=== PATIENT | male | born 1950 | race Caucasian/White ===

== ENCOUNTER → 2018-12-01 18:02 | Outpatient (REF) | payer MEDICARE, SELFPAY ==
[2018-12-01 19:00] LABS: Alanine Aminotransferase 25 IU/L (21-72); Albumin Globulin Ratio 1.3 (1.0-2.8); Alkaline Phosphatase 75 U/L (38-126); Aspartate Aminotransferase 27 IU/L (17-59); BUN Creatinine Ratio 18.8 (6-22); Bilirubin Total 0.6 mg/dL (0.2-1.3); Blood Urea Nitrogen 15 mg/dL (9-20); Calcium 8.9 mg/dL (8.4-10.2); Carbon Dioxide 26 mmol/L (22-32); Chloride 103 mmol/L (98-107); Cholesterol 184 mg/dL (140-199); Estimated Glomerular Filt Rate > 60.0 mL/min (>60); Glucose 94 mg/dL (80-110); HDL Cholesterol 34 mg/dL (40-60); HEMOLYSIS < 15 (0-50); LDL Cholesterol Calculated 119 mg/dL (<100); Potassium 4.4 mmol/L (3.4-5.1); Sodium 139 mmol/L (137-145); Triglycerides 156 mg/dL (35-150)
[2018-12-01 19:28] LABS: Prostate Specific Antigen 1.13 ng/mL (0.10-4.00)
== END ==
LOC: LAB 18:02
PROVIDERS: Family Provider Nutritionist; PCP Nutritionist; Visit Provider Physician Assistant
DX: C44.319 Basal cell carcinoma of skin of other parts of face (principal); Z12.5 Encounter for screening for malignant neoplasm of prostate; Z13.220 Encounter for screening for lipoid disorders
CPT/HCPCS: 36415; 80053; 80061; 84153; 88305

== ENCOUNTER → 2020-04-28 10:54 | Outpatient (CLI) | payer OTHER, SELFPAY ==
[2020-04-28 12:26] LABS: Add Manual Diff / Slide Review NO; Basophils Absolute Auto 0 /uL (0-100); Basophils Percent Auto 0.5 % (0-2); Eosinophils Absolute Auto 200 /uL (0-450); Eosinophils Percent Auto 2.6 % (2-4); Hematocrit 35.9 % (41-53); Hemoglobin 12.3 g/dL (13.5-17.5); Lymphocytes Absolute Auto 1200 /uL (1100-4500); Lymphocytes Percent Auto 16.9 % (25-40); Mean Corpuscular HGB Conc 34.3 % (30-36); Mean Corpuscular Hemoglobin 29.4 PG (26-34); Mean Corpuscular Volume 85.9 fL (80-100); Monocytes Absolute Auto 500 /uL (0-900); Monocytes Percent Auto 7.5 % (3-14); Neutrophils Absolute Auto 5000 /uL (1500-7000); Neutrophils Percent Auto 72.5 % (50-75); Platelet Count 166 X10^3/uL (150-400); Red Blood Cell Count 4.17 X10^6/uL (4.5-5.9); Red Cell Distribution Width 13.8 % (11.6-14.8); White Blood Cell Count 6.9 X10^3/uL (4.5-11.0)
== END ==
PROVIDERS: Family Provider Nutritionist; PCP Nutritionist; Referring Provider Orthopaedic Surgery; Visit Provider Orthopaedic Surgery
DX: Z01.812 Encounter for preprocedural laboratory examination (principal); Z01.818 Encounter for other preprocedural examination
CPT/HCPCS: 36415; 85025; 93005

== ENCOUNTER → 2020-05-25 10:35 | Outpatient (CLI) | payer OTHER, SELFPAY ==
[2020-05-27 12:09] LABS: COVID19 Sendout Not Detected (Not Detect)
== END ==
PROVIDERS: Family Provider Nutritionist; PCP Nutritionist; Visit Provider Physician Assistant
DX: Z11.59 Encounter for screening for other viral diseases (principal)
CPT/HCPCS: 87635

== ENCOUNTER 2020-05-28 07:53 | Day surgery (SDC) | payer OTHER, SELFPAY ==
[2020-05-21 08:38] VITALS: BMI 34.7
[2020-05-28] VITALS (14 sets, daily range): BP systolic 109–145; BP diastolic 53–72; PULSE 50–67; RESP 12–18; TEMP 35.9–36.7; O2SAT 95–100; BMI 33.3
--- NOTE | 2020-05-28 08:34 | DI.RAD.S_ITS ---
PROCEDURE: XR PELVIS 1-2V INDICATIONS: post op films TECHNIQUE: 1 view of the lower pelvis acquired. COMPARISON: None. FINDINGS: Bones: Patient is status post right total hip arthroplasty, with hardware components in expected positions. The hip joint appears congruent. The visualized bony structures appear intact. Soft tissues: Overlying postoperative changes are noted. No suspicious soft tissue densities. IMPRESSION: Post right total hip arthroplasty changes with anatomic right hip alignment. Dictated by: Bry Grigsby M.D. on 05/28/2020 at 12:53 Approved by: Bry Grigsby M.D. on 05/28/2020 at 12:54
[2020-05-28] MEDS: ACETAMINOPHEN 325 MG TABLET 975 MG PO (08:44)
[2020-05-28] MEDS: LACTATED RINGERS 1,000 ML 42 ML IV (08:44)
[2020-05-28] MEDS: CELECOXIB 200 MG CAPSULE PO (08:47)
--- NOTE | 2020-05-28 09:25 | PM.PREOP ---
Pre-operative Note COVID-19 COVID-19 status: Negative Result date/Date tested (Pos, Neg/Pending): 05/26/20 Interval Note History & Physical reviewed/Exam performed by Physician: Yes Changes to H&P: No
--- NOTE | 2020-05-28 09:32 | SUR.PREOP ---
Zara Hayes per anesthesiologist, due to pt taking Gabapentin this morning
[2020-05-28] MEDS: CEFAZOLIN 2 GM/100 ML FROZ.PIGGY IV ×2 (10:03→18:46)
[2020-05-28] MEDS: TRANEXAMIC ACID 1,000 MG VIAL 1000 MG INJ ×2 (10:20→11:29)
--- NOTE | 2020-05-28 10:36 | SUR.OPER ---
Lateral on padded OR bed. Gel axillary roll. Arms secured on padded armboard with pillow supporting top arm. Padded hip positioner braces x4 - anterior and posterior chest and pelvis. Additional gel pad used anterior pelvis. Gel pad under bottom leg from knee to foot and secured with tape over sheet.
[2020-05-28] MEDS: ROPIVACAINE 0.5% PF 5 MG/ML 20ML VIAL 60 ML INJ (10:41)
[2020-05-28] MEDS: KETOROLAC 30 MG/ML VIAL IV (10:41)
[2020-05-28] MEDS: MORPHINE 4 MG/ML INJ INJ (10:41)
--- NOTE | 2020-05-28 11:52 | P.OP_ITS ---
Operative Date/Time/Diagnoses Date of procedure: 05/28/20 Time of procedure: 11:52 Pre-op diagnosis: Right hip degenerative joint disease Post-op diagnosis: same Procedure & Clinicians Procedure: Right total hip arthroplasty (CPT code 57194 with events administrative assistant) Same procedure as scheduled: Yes Indications: Patient is an 69-year-old male with severe right hip DJD. The patient has pain with activities and at rest, limited ambulation and activity tolerance, difficulties with ADLs, and failure of conservative treatment. We have discussed the nature of condition, treatment options, risks and benefits, and patient elects to proceed with total hip arthroplasty and gives informed consent. Surgeon: Gilbert Bear [employer] Supervisor: Carlos Oh Anesthesia Type: General and Spinal Operative Notes Closure Type: primary Specimen(s): none sent Prosthetic devices, grafts, tissues, transplants, or devices: Acetabulum: Gordon and Nephew R3 acetabular component size 60 mm Femoral component: Gordon [employer]hew Anthology stem size 12 with standard offset Femoral head: 36 mm + 0 Oxinium Estimated Blood Loss (mL): 200 Procedure in detail: After satisfaction induction of anesthetic, and administration of IV antibiotics, the patient was positioned in the lateral decubitus position with all bony prominences well padded and pelvic position secured using a hip data entry operator positioning device. Right hip and lower extremity prepped and draped in the usual sterile fashion, 1st dose of intravenous tra nexamic acid was administered, then a longitudinal incision was created centered over the greater trochanter and carried sharply through the skin and subcutaneous tissues down to the fascia kendell which was divided longitudinally and retracted with a Charnley retractor. External rotators visualize, cut, tagged, and retracted posteriorly, then the capsule was cut in a T-type fashion with the corners tagged and retracted. Hip was dislocated and femoral neck cut made according to preoperative templating. Acetabular retractors then placed, and the acetabular labrum and osteophytes were excised. The acetabulum was then sequentially reamed to 59 mm with an excellent circumferential ream and fit with the trial. The trial component was removed and a permanent size 60 mm Gordon and Nephew R3 acetabular component was selected, positioned, and impacted with satisfactory position and fixation achieved. Permanent liner was then inserted with the elevated lip directed posteriorly. Soft tissue then removed off the lateral femoral neck in the lateral neck was entered using a box osteotome. T- handled reamers placed down the canal followed by sequential broaching to 12 with the final broach left in place for trial reduction which demonstrated excellent leg length, range of motion, and stability characteristics with a 36 mm +0 trial ball. The trial and broach were removed, and a permanent size 12 Gordon and Nephew Anthology stem was selected and inserted with excellent position and fixation achieved. Another trial reduction yielded the above characteristics so the trial ball was exchanged for a permanent 36 mm +0 Oxinium ball. The hip was irrigated and reduced and excellent leg length range of motion and stability characteristics were achieved and maintained. Periarticular tissues were infiltrated with ropivacaine, morphine, and Toradol. The hip was copiously irrigated, and the capsule repaired with #2 Ethibond, and the piriformis was repaired back to the greater trochanter with the same. Fascia kendell closed with interrupted #1 Ethibond sutures, and the subcutaneous tissues were closed in 2 layers of 0 Vicryl and 2 0 Vicryl. Skin was closed with giorgio and sterile dressings applied. Second dose of tranexamic acid was administered intravenously, and the anesthetic was terminated. Complications: none Post-operative Condition: stable Disposition: PACU Plan for aftercare: Patient will be admitted to the acute care joshi, and anticipate discharge on postop day 1 with follow-up in office in 10-14 days. Outpatient physical therapy will be arranged and patient will continue to observe posterior hip precautions. Patient will continue use of postoperative aspirin for DVT prophylaxis.
[2020-05-28] MEDS: LACTATED RINGERS 1,000 ML 125 ML IV ×2 (13:07→21:58)
--- NOTE | 2020-05-28 14:21 | PC.NURSE ---
Addendum entered by Agnes Monique R.N. 05/28/20 15:27: Pt c/o left eye irritation and rubbing left eye. States irritation is under his upper eyelid on the left. Eye lid does look irritated, slightly red. Nothing seen upon visual inspection. Flushed with NS without any good relief. Evening RN Dina also aware. Original Note: Day Shift- Report rec'd from NICK Gary in PACU at 1229. Pt arrived to unit room 217 at 1237 via bed. Pt A&OX4. Oriented to call light, bed function. Pt able to properly demonstrate incentive spirometer. Pt's Jorge arrived in pt's room visiting. They are from [facility] and requested to have an early discharge tomorrow to facilitate a timely discharge for Raghav. PT Courtney also aware of this. Pt's BLE numb, slight movement in bed from side to side, no lifting legs off bed. RLE more numb than compared to LLE. Pt on arrival was unable to perform ankle waves. Was able to slightly bend at the knee. IVF started, pt wanted only ice water at this time. Denies pain, nausea, chest pain/pressure or shortness of breath. Call light within reach.
--- NOTE | 2020-05-28 15:30 | PT.IIE ---
Current Diagnoses Unilateral primary osteoarthritis, right hip (05/28/20) Surgery Performed Operation Date: 05/28/20 09:45 Actual Procedures p Total Hip Arthroplasty(Right) - Gilbert Bear MD Surgical History (Last Updated 05/21/20 @ 09:20 by Francine Chase, RN) History of arthroplasty of left knee (Acute) History of arthroplasty of right knee (Acute) History of testicular surgery (Acute) History of vasectomy (Acute) Hx of left inguinal hernia repair (Acute) Hx of right inguinal hernia repair (Acute) Hx of umbilical hernia repair (Acute) Medical History (Last Updated 05/21/20 @ 09:43 by Francine Chase RN) Brain bleed (Acute 2016) Chronic back pain (Acute) Diverticulosis (Acute) Multiple lipomas (Acute ~1975) BENY on CPAP (Acute) Osteoarthritis (Acute) Plantar fasciitis of right foot (Acute) Physical Therapy Inpatient Evaluation/Re-Eval M1 PT/OT-IP Prior Functional Status Start: 05/28/20 16:36 Freq: NEEDED Status: Active Protocol: Document 05/28/20 15:30 AB (Rec: 05/28/20 17:11 [id number]) Medical Review Prior Functional Status Medical History Reviewed Yes Communication able to make needs known Mobility and Gait stated that he is independent with all mobilites and ambulation without AD Social History Household Members spouse Living Arrangements House Number of Floors (Floors) One Floor Number of Stairs To Enter/Railing? 2 steps to enter with R rail ascending Home Environment Standard Height Toilet,Tub/ Shower Home Equipment Front Wheel Walker,Straight Cane,Raised Toilet Seat Without Armrests,Shower Seat without Backrest,Grab Bars In Shower M2 PT-IP Current Condition Start: 05/28/20 16:36 Freq: NEEDED Status: Active Protocol: Document 05/28/20 15:30 AB (Rec: 05/28/20 17:11 AB [id number]) Physical Therapy Current Condition Current Condition Evaluation Date 05/28/20 Treatment Diagnosis s/p R MAIRA posterior approach; difficulty in walking Onset Date 05/28/20 Precautions Posterior Hip Precautions No Hip Flexion > 90 degrees,No Hip Internal Rotation,No Hip Adduction Weight Bearing Status Weight Bearing Status Weight Bear as Tolerated Allowed Weight Bearing Amount (enter % RLE WBAT or #) (%) M3 PT-IP Subjective Start: 05/28/20 16:36 Freq: NEEDED Status: Active Protocol: Document 05/28/20 15:30 AB (Rec: 05/28/20 17:11 AB [id number]) Subjective Physical Therapy Visit Type Type Initial Evaluation Visit Start Time 15:30 Visit Stop Time 16:20 Total Visit Minutes 50 Number of MATERNAL CHILD NURSE Visits 0 Physical Therapy Visit Comments Patient Comments pt is agreeable to do PT Therapy Pain Assessment Pain When Pain Assessed At Rest Pain Present Pain Present Pain Reported Location Right Hip Intensity 1 Scale Used Numeric (0 - 10) Pain Management Techniques Apply Cold,Modification of Treatment,Re-positioning, Timing of Activity with Medications M4 PT-IP Mobility and Gait Start: 05/28/20 16:36 Freq: NEEDED Status: Active Protocol: Document 05/28/20 15:30 AB (Rec: 05/28/20 17:11 AB [id number]) PT-Bed Mobility Assessment Supine to Sit Supine to Sit Standby Assistance Sit to Supine Sit to Supine Standby Assistance Scooting Scooting to Edge of Bed Standby Assistance Scooting Up and Down in Bed Standby Assistance PT-Transfer Assessment Sit to and From Stand Sit to and from Stand Contact Guard Assistance, Minimal Assistance,Use of Upper Extremities Equipment Transfer Assistive Device Gait Belt,Front Wheeled Walker Orthotic/Prosthetic Devices or Brace: No Comments Mobility Comments reviewed hip precautions with pt and pt was able to recall. completeds upine to sit SBA. completed sit to stand min A and cues. ambulated in room ~ 25 ft using FWW min A and cues. pt sat on EOB to rest. sit <>stand x 4 reps completed with cues on techniques and was able to complete with just CGA towards end of repetitions. pt ambulated again in room ~ 30 ft using FWW CGA to occasional min A and cues. pt completed sit to supine SBA . positioned pt in bed. call light and table placed within reach. Gait Assessment Gait Gait Assistance Required: Contact Guard Assist,Minimum Assistance Distance (Feet) 30 Able to Maintain Weight Bearing Status Yes During Gait Assistive Devices Assistive Device Gait Belt,Front Wheeled Walker Orthotic/Prosthetic Devices or Brace: No Gait Deviations General Gait Pattern Antalgic,Decreased Stride Length,Decreased Feet Clearance Factors Limiting Gait Function Factors Limiting Gait Function Decreased Activity Tolerance, Decreased Strength,Limited Range of Motion,Pain,Poor Balance Comments Gait Comments pls refer to mobility section for details PT-Balance Assessment Sitting Balance and Reactions Static Sitting Balance Ability Normal Dynamic Sitting Balance Ability Normal Standing Balance and Reactions Static Standing Balance Ability Fair Dynamic Standing Balance Ability Fair Device Used FWW M5 PT-IP Objective Assessments Start: 05/28/20 16:36 Freq: NEEDED Status: Active Protocol: Document 05/28/20 15:30 AB (Rec: 05/28/20 17:11 AB [id number]) Orientation Orientation/Cognition Level of Alertness Alert Orientation Name,Age,Birthday,Month,Date, Year,Day of Week,Place, Situation Language Function Ability No Deficits Noted Safety Awareness Understands Safety Issues Memory Description No Deficits Noted Strength Lower Extremity Strength Assessment Within Functional Limits Coordination Assessment Gross Coordination Gross Coordination WNL Sensation Assessment Sensation Gross Sensation WNL Muscle Tone Muscle Tone WNL Yes M6 PT-IP Treatment Start: 05/28/20 16:36 Freq: NEEDED Status: Active Protocol: Document 05/28/20 15:30 AB (Rec: 05/28/20 17:11 [id number]) Physical Therapy Treatment Education Education Provided Precautions,Weight Bearing Status,Post-Op Packet,Safety M7 PT-IP Assessment and Plan Start: 05/28/20 16:36 Freq: NEEDED Status: Active Protocol: Document 05/28/20 15:30 AB (Rec: 05/28/20 17:11 AB [id number]) PT Summary Assessment and Plan Potential Rehabilitation Potential Good Status of Condition at Evaluation Stable Summary Impairments Pain,ROM,Strength,Balance,Bed Mobility,Transfers,Gait, Activity Tolerance Assessment Summary pt requiring CGA to min A with mobility using FWW and plans to go home with spouse to assist him. pt is set up for outpt PT. caregiver training will be conducted when appropriate. stair climbing training will be completed prior to d/c. Goals Bed Mobility Goal Independent Transfer Goal Independent,Front Wheeled Walker Gait Goal Independent,Front Wheel Walker Gait Distance 200 Days to Meet Goals 5 Frequency of Treatment Frequency Of Treatment Twice a Day Treatment Plan Physical Therapy Treatment Plan Bed Mobility Training,Transfer Training,Gait Training, Therapeutic Exercise,Balance Retraining,Post Op Education, Discharge Planning,Hot or Cold Pack,Neuromuscular Re-ed, Coordination Retraining,Manual Therapy Other Recommendations and Next Treatment ambulation, stair climbing, Focus caregiver training Recommendations To Nursing Amount of Assist Needed 1 Person Assist Discharge Recommendations PT Discharge Recommendations Home with Assistance, Outpatient PT Transportation Needs at Discharge Private Vehicle
[2020-05-28] MEDS: ACETAMINOPHEN 325 MG TABLET 650 MG PO ×2 (16:32→21:13)
--- NOTE | 2020-05-28 20:07 | PC.NURSE ---
bladder scan 528, pt unable to void. in and out cath had 650cc out. pt tolerated well.
[2020-05-28] MEDS: NAPROXEN 250 MG TABLET 500 MG PO (21:13)
[2020-05-28] MEDS: GABAPENTIN 300 MG CAPSULE PO (21:13)
[2020-05-28] MEDS: DOCUSATE 100 MG CAPSULE PO (21:13)
[2020-05-29] MEDS: CEFAZOLIN 2 GM/100 ML FROZ.PIGGY IV (01:34)
[2020-05-29 05:51] LABS: Hematocrit 30.8 % (41-53); Hemoglobin 10.4 g/dL (13.5-17.5)
[2020-05-29 05:59] VITALS: BP 115/55; PULSE 67; RESP 16; TEMP 36.2; O2SAT 94
[2020-05-29 08:20] VITALS: BP 107/64; PULSE 53; RESP 16; TEMP 36.4; O2SAT 99
[2020-05-29] MEDS: ASPIRIN EC 81 MG TABLET PO (08:56)
[2020-05-29] MEDS: DOCUSATE 100 MG CAPSULE PO (08:58)
[2020-05-29] MEDS: ACETAMINOPHEN 325 MG TABLET 650 MG PO (08:58)
[2020-05-29] MEDS: GABAPENTIN 300 MG CAPSULE PO (08:58)
[2020-05-29] MEDS: NAPROXEN 250 MG TABLET 500 MG PO (08:58)
--- NOTE | 2020-05-29 10:24 | PT.IPTN ---
Current Diagnoses Unilateral primary osteoarthritis, right hip (05/28/20) Surgery Performed Operation Date: 05/28/20 09:45 Actual Procedures p Total Hip Arthroplasty(Right) - Gilbert Bear MD Physical Therapy Treatment Note M2 PT-IP Current Condition Start: 05/28/20 16:36 Freq: NEEDED Status: Discharge Protocol: Document 05/28/20 15:30 AB (Rec: 05/28/20 17:11 AB [id number]) Physical Therapy Current Condition Current Condition Evaluation Date 05/28/20 Treatment Diagnosis s/p R MAIRA posterior approach; difficulty in walking Onset Date 05/28/20 Precautions Posterior Hip Precautions No Hip Flexion > 90 degrees,No Hip Internal Rotation,No Hip Adduction Weight Bearing Status Weight Bearing Status Weight Bear as Tolerated Allowed Weight Bearing Amount (enter % RLE WBAT or #) (%) M3 PT-IP Subjective Start: 05/28/20 16:36 Freq: NEEDED Status: Discharge Protocol: Document 05/29/20 09:58 KS (Rec: 05/29/20 13:17 KS [id number]) Subjective Physical Therapy Visit Type Type Treatment Note Visit Start Time 09:58 Visit Stop Time 10:24 Total Visit Minutes 26 Number of SHEET METAL DUCT INSTALLER Visits 1 Physical Therapy Visit Comments Patient Comments Pt is agreeable to do PT. Pts present for caregiver training. M4 PT-IP Mobility and Gait Start: 05/28/20 16:36 Freq: NEEDED Status: Discharge Protocol: Document 05/29/20 09:58 KS (Rec: 05/29/20 13:17 KS [id number]) PT-Bed Mobility Assessment Supine to Sit Supine to Sit Standby Assistance Sit to Supine Sit to Supine Standby Assistance Scooting Scooting to Edge of Bed Standby Assistance Scooting Up and Down in Bed Standby Assistance PT-Transfer Assessment Sit to and From Stand Sit to and from Stand Contact Guard Assistance,Use of Upper Extremities Equipment Transfer Assistive Device Gait Belt,Front Wheeled Walker Orthotic/Prosthetic Devices or Brace: No Transfers Transfer Destination Bed,Wheelchair Transfer Ability Level of Assist Standby Assistance,Contact Guard Assistance,1 Person Assistance,Use of Upper Extremities Comments Mobility Comments Pt was in bed upon arrival from therapy w/ present for caregiver training. Pt SBA for bed mobility, CGA for sit <>stand w/ FWW. Pt then ambulated ~200 ft to stairs w/ FWW and CGA. Pt demonstrated good use of FWW and needed min cues for equal step length. Pts gait improved w/ distance. Instructed pt and pts how to ascend/descend steps correctly, pt ascended/ descended 3 steps x 2 w/ R rail and L KINDERGARTEN TEACHER ASSISTANT w/ step to pattern. Pts was able to provide CGA and KINDERGARTEN TEACHER ASSISTANT safely and appropriately. Pt and state they feel safe to complete steps at home. Pt transported in w/c back to room for energy conservation. Pt ambulated from w/c in doorway back to bed and returned to bed SBA. Pt and state they feel safe to return home and pt has rehab set up. Gait Assessment Gait Gait Assistance Required: Standby Assistance,Contact Guard Assist,1 Person Assist Distance (Feet) 210 Able to Maintain Weight Bearing Status Yes During Gait Assistive Devices Assistive Device Gait Belt,Front Wheeled Walker Orthotic/Prosthetic Devices or Brace: No Gait Deviations General Gait Pattern Antalgic,Decreased Stride Length,Decreased Feet Clearance Factors Limiting Gait Function Factors Limiting Gait Function Decreased Activity Tolerance, Decreased Strength,Limited Range of Motion,Pain,Poor Balance Comments Gait Comments pls refer to mobility section for details Stair Climbing Assessment Evaluation Level of Assist On Stairs Contact Guard Assistance,1 Person Assistance Devices Stair Climbing Assistive Devices Right Railing Technique/Endurance Stair Climbing Direction Ascend and Descend Stair Climbing Technique Step to Step Number of Steps Climbed 3 Stair Climbing Set # Repetitions (reps) 2 Comments Stair Climbing Comments Pt ascended/descended 3 steps x2 w/ step to pattern w/ R rail and L KINDERGARTEN TEACHER ASSISTANT provided by . Min cues for sequencing. PT-Balance Assessment Sitting Balance and Reactions Static Sitting Balance Ability Normal Dynamic Sitting Balance Ability Normal Standing Balance and Reactions Static Standing Balance Ability Good Dynamic Standing Balance Ability Fair Device Used FWW M5 PT-IP Objective Assessments Start: 05/28/20 16:36 Freq: NEEDED Status: Discharge Protocol: Document 05/28/20 15:30 AB (Rec: 05/28/20 17:11 AB [id number]) Orientation Orientation/Cognition Level of Alertness Alert Orientation Name,Age,Birthday,Month,Date, Year,Day of Week,Place, Situation Language Function Ability No Deficits Noted Safety Awareness Understands Safety Issues Memory Description No Deficits Noted Strength Lower Extremity Strength Assessment Within Functional Limits Coordination Assessment Gross Coordination Gross Coordination WNL Sensation Assessment Sensation Gross Sensation WNL Muscle Tone Muscle Tone WNL Yes M6 PT-IP Treatment Start: 05/28/20 16:36 Freq: NEEDED Status: Discharge Protocol: Document 05/29/20 09:58 KS (Rec: 05/29/20 13:17 KS [id number]) Physical Therapy Treatment Education Education Provided Precautions,Weight Bearing Status,Post-Op Packet,Safety M7 PT-IP Assessment and Plan Start: 05/28/20 16:36 Freq: NEEDED Status: Discharge Protocol: Document 05/29/20 09:58 KS (Rec: 05/29/20 13:17 KS [id number]) PT Summary Assessment and Plan Potential Rehabilitation Potential Good Status of Condition at Evaluation Stable Summary Impairments Pain,ROM,Strength,Balance,Bed Mobility,Transfers,Gait, Activity Tolerance Progress Towards Goals Progressing Toward Goals Assessment Summary Pt SBA for bed mobility, CGA for sit<>stand, CGA for ambulation and stairs. Pt ambulated ~210 ft w/ FWW and CGA w/ cues for equal step length. Pt then ascended/ descended 3 stespx 2 w/ R rail and L KINDERGARTEN TEACHER ASSISTANT provided safely by pts . Pt and state they feel safe to return home and perform steps at home. Pt will benefit from OPPT to improve tolerance for activity , ROM, strength, and gait. Goals Bed Mobility Goal Independent Transfer Goal Independent,Front Wheeled Walker Gait Goal Independent,Front Wheel Walker Gait Distance 200 Days to Meet Goals 5 Frequency of Treatment Frequency Of Treatment Twice a Day Treatment Plan Physical Therapy Treatment Plan Bed Mobility Training,Transfer Training,Gait Training, Therapeutic Exercise,Balance Retraining,Post Op Education, Discharge Planning,Hot or Cold Pack,Neuromuscular Re-ed, Coordination Retraining,Manual Therapy Other Recommendations and Next Treatment ambulation, stair climbing, Focus caregiver training Recommendations To Nursing Amount of Assist Needed 1 Person Assist Discharge Recommendations PT Discharge Recommendations Home with Assistance, Outpatient PT Transportation Needs at Discharge Private Vehicle
--- NOTE | 2020-05-29 13:06 | PC.NURSE ---
Day shift: Pt taken to car driven by his spouse. Pt taken in WC by TREVOR Wolf. Paperwork signed and all questions answered. Bulky hip dressing CDI. Pt's spouse went and had MD scripts filled already. Pt will tke a [place] for the ferry ride back to [facility]. Pt has all personal belongings.
--- NOTE | 2020-05-29 14:37 | CM.IDA ---
Addendum entered by HECTOR Soto 05/29/20 14:44: correction: Right hip surgery, not Uni Rt Hip Original Note: Initial DCP Assessment Note Pt is a 69 yo male, resident of [facility], now POD#1 from uni Rt hip surgery w/ Dr Bear PCP: Yaw Javier Payer: [facility] Reviewed chart, pt discussed in multidisciplinary rounds this morning. Therapy has cleared pt for return home w/family to assist and pt has planned for home, DC order from Ortho has already been initiated this morning. No needs expected from DC planning team although will remain available in case this changes today. HECTOR Soto
== END 2020-05-29 13:08 | disposition home or self-care (01) ==
LOC: OR 07:55 → AC 07:56
PROVIDERS: PCP Family Medicine Geriatric Medicine; Referring Provider Family Medicine Geriatric Medicine; Visit Provider Orthopaedic Surgery
PROC: 0SR90JZ Replacement of Right Hip Joint with Synthetic Substitute, Open Approach (ICD-10-PCS; CPT 27130; principal; 2020-05-28 09:45)
DX: M16.11 Unilateral primary osteoarthritis, right hip (principal)
CPT/HCPCS: 27130; 36415; 72170; 85014; 85018; 94760; 97116; 97161; 97530; C1776; J0690; J1100; J1885; J2250; J2270; J2274; J2405; J3010

== ENCOUNTER 2020-07-19 17:34 | Inpatient (IN) | payer OTHER, SELFPAY ==
[2020-05-28 13:27] VITALS: BMI 33.3
[2020-07-19 17:35] VITALS: BP 156/79; PULSE 69; RESP 18; TEMP 36.6; O2SAT 97
[2020-07-19 17:37] VITALS: BMI 33.6
--- NOTE | 2020-07-19 18:08 | PM.HP.1 ---
History of Present Illness History of Present Illness Date Patient Seen: 07/19/20 Time Patient Seen: 17:30 Date of Onset of Symptoms: 07/12/20 Chief complaint: diverticulitis Narrative: Patient is a 69-year-old male with spinal stenosis but otherwise generally good health who presented initially to [facility] with complaints of worsening abdominal pain. One week ago he developed pain in the left lower abdomen. Since then the pain has also crossed over to the right lower and right upper abdomen. Patient denies nausea or vomiting. He had chills last night and low-grade temp in the ED. he had episode of gross hematuria this morning. He denies frothy urine. His urinalysis from outside ED indicated greater than 100 RBC and 1-2 WBC. Blood work showed WBC 8.0 with 76% neutrophils, hemoglobin 11.1, hematocrit 33.9, platelets 215, lactate 1.4, sodium 136, potassium 3.9, BUN 14, creatinine 0.81, with normal LFTs. Outside CT scan of abdomen and pelvis indicated severe diverticulitis of the sigmoid colon with a 2 cm left perinephric abscess. Patient received dose of Zosyn at about 3:00 p.m. and subsequently transferred to [facility] for inpatient care and surgical consultation. Patient does note 1 prior history of uncomplicated diverticulitis back in 2010. Patient History Medical History (Updated 05/21/20 @ 09:43 by Francine Chase RN) Brain bleed (Acute 2016) Chronic back pain (Acute) Diverticulosis (Acute) Multiple lipomas (Acute ~1975) BENY on CPAP (Acute) Osteoarthritis (Acute) Plantar fasciitis of right foot (Acute) Surgical History (Updated 05/21/20 @ 09:20 by Francine Chase RN) History of arthroplasty of left knee (Acute) History of arthroplasty of right knee (Acute) History of testicular surgery (Acute) History of vasectomy (Acute) Hx of left inguinal hernia repair (Acute) Hx of right inguinal hernia repair (Acute) Hx of umbilical hernia repair (Acute) Family & Social History Social History: household members spouse Prior Living Arrangements House Safety & Behavioral: Feels Safe in Current Yes Environment Been Physically Hurt or No Threatened By a Person Suicidal Ideation Description None Suicide Plan Description No Plan Tobacco & Substance use: Tobacco type cigarettes Smoking Status Former smoker alcohol intake current alcohol intake frequency a few times a week Substance Use Type does not use Meds Home Medications and Allergies Home Medications Medication Instructions Recorded Confirmed Type aspirin 81 mg PO DAILY 05/21/20 05/28/20 History gabapentin 300 mg PO BID 05/21/20 05/28/20 History naproxen sodium [Aleve] 440 mg PO BID 05/21/20 05/21/20 History hydrocodone-acetaminophen 1 tab PO Q4HR PRN #30 tab 05/29/20 Rx Allergies Allergy/AdvReac Type Severity Reaction Status Date / Time adhesive tape Allergy Mild Redness Verified 05/25/20 10:34 to skin if on longer than 3 days Review of Systems Review of Systems ROS: Yes All systems reviewed with the patient and are negative except as otherwise documented Exam Narrative Exam Narrative: General: Alert and cooperative male currently not in acute distress HEENT: Pupils equal Neck: No lymphadenopathy Lungs: Clear to auscultation Heart: Distant S1 and S2, regular rhythm, no murmur Abdomen: Obese, moderately distended, active bowel sounds present, tender and guarding in the left lower quadrant as well as the right lower and right upper quadrants, no rebound Extremities: Warm and dry. No pitting edema Neurological: Fully oriented, speech fluent, affect normal, no focal weakness Assessment & Plan Assessment & Plan narrative: Patient is 69-year-old male presenting with 1 week history of left lower abdominal pain progressing to the right side, episode of hematuria, chills and low-grade fever. 1. Acute sigmoid diverticulitis with diverticular abscess, present on admission, active -CT scan showing severe sigmoid diverticulitis and 2 cm left perinephric abscess -NPO except meds, bowel rest, LR 100 cc/hour -Zosyn 3.375 g IV q.6 hours for antibiotics -hydromorphone 0.5-1 mg IV as needed, Zofran as needed -consult to Dr. Norwood to see patient in a.m. -repeat labs in a.m. 2. Acute hematuria, present on admission, active -outside UA with greater than 100 RBC, 1-2 WBC, no bacteria -etiology unclear and whether patient might have colovesical fistula causing the urinary bleeding -await further recommendation from surgery 3. Spinal stenosis, chronic -continue patient's gabapentin 300 mg b.i.d. DVT prophylaxis: Lovenox Quality VTE Deep Vein Thrombosis/Pulmonary Embolism Present on Admission: No
[2020-07-19 18:36] VITALS: O2SAT 97
[2020-07-19] MEDS: HYDROMORPHONE 1 MG INJ 0.5 MG IV (18:49)
[2020-07-19] MEDS: LACTATED RINGERS 1,000 ML 100 ML IV (18:49)
[2020-07-19] MEDS: GABAPENTIN 300 MG CAPSULE PO (21:26)
[2020-07-19] MEDS: HYDROMORPHONE 0.5 MG INJ IV (21:26)
[2020-07-19] MEDS: PIPERACILLIN-TAZO 3.375 GM/50 ML FROZ.PIGGY IV (21:26)
[2020-07-20] VITALS (9 sets, daily range): BP systolic 141–152; BP diastolic 72–90; PULSE 67–71; RESP 14–24; TEMP 36.9–37.6; O2SAT 94–97
[2020-07-20] MEDS: PIPERACILLIN-TAZO 3.375 GM/50 ML FROZ.PIGGY IV ×4 (03:23→20:40)
[2020-07-20] MEDS: HYDROMORPHONE 0.5 MG INJ IV (04:39)
[2020-07-20] MEDS: LACTATED RINGERS 1,000 ML 100 ML IV ×2 (04:39→16:30)
[2020-07-20 05:33] LABS: Add Manual Diff / Slide Review NO; Basophils Absolute Auto 0 /uL (0-100); Basophils Percent Auto 0.5 % (0-2); Eosinophils Absolute Auto 100 /uL (0-450); Eosinophils Percent Auto 0.7 % (2-4); Hematocrit 32.8 % (41-53); Hemoglobin 11.1 g/dL (13.5-17.5); Lymphocytes Absolute Auto 800 /uL (1100-4500); Lymphocytes Percent Auto 10.5 % (25-40); Mean Corpuscular HGB Conc 33.7 % (30-36); Mean Corpuscular Hemoglobin 28.2 PG (26-34); Mean Corpuscular Volume 83.7 fL (80-100); Monocytes Absolute Auto 700 /uL (0-900); Monocytes Percent Auto 9.1 % (3-14); Neutrophils Absolute Auto 6300 /uL (1500-7000); Neutrophils Percent Auto 79.2 % (50-75); Platelet Count 203 X10^3/uL (150-400); Red Blood Cell Count 3.92 X10^6/uL (4.5-5.9); Red Cell Distribution Width 15.9 % (11.6-14.8)
[2020-07-20 05:34] LABS: Alanine Aminotransferase 33 IU/L (<50); Albumin 3.6 g/dL (3.5-5.0); Albumin Globulin Ratio 1.1 (1.0-2.8); Alkaline Phosphatase 118 U/L (38-126); Aspartate Aminotransferase 32 IU/L (17-59); Bilirubin Total 1.1 mg/dL (0.2-1.3); Bilirubin Unconjugated 0.8 mg/dL (0.0-1.1); Globulin 3.3 g/dL (1.7-4.1); HEMOLYSIS < 15 (0-50); Total Protein 6.9 g/dL (6.3-8.2)
[2020-07-20 05:40] LABS: BUN Creatinine Ratio 21.2 (6-22); Blood Urea Nitrogen 14 mg/dL (9-20); Calcium 8.7 mg/dL (8.4-10.2); Carbon Dioxide 26 mmol/L (22-32); Chloride 103 mmol/L (98-107); Estimated Glomerular Filt Rate > 60.0 mL/min (>60); Glucose 101 mg/dL (80-110); HEMOLYSIS < 15 (0-50); Potassium 4.1 mmol/L (3.4-5.1); Sodium 135 mmol/L (137-145)
[2020-07-20 05:50] LABS: Procalcitonin 0.58 ng/mL (<0.5)
[2020-07-20] MEDS: ENOXAPARIN 40 MG/0.4 ML SYRINGE SUBCUT (08:57)
[2020-07-20] MEDS: HYDROMORPHONE 1 MG INJ IV ×3 (08:58→18:54)
--- NOTE | 2020-07-20 10:25 | PC.NURSE ---
Addendum entered by Katherine Zapien R.N. 07/20/20 14:46: Patient just medicated with iv dilaudid 1mg iv. This has been helpful for patients l.upper abdominal pain. Original Note: Assess- Patients abdomen is bloated, he is having pain to his r.upper quadrant, given 1mg of iv dilaudid and helpful . Patients gabapentin held for now as he is NPO. Surgeon to see him sometime today. has already did rounds on patient. He is more comfortable now after iv dilaudid given.
--- NOTE | 2020-07-20 11:06 | CM.DANOTE ---
Discharge Planning/Care Management DCP: assessment: case received, EMR reviewed and met with pt and his during Team Bedside Rounds. Introduced self and role. Pt is a 69 year old male who admitted last night to care of hospitalist team. Dr. Padilla has consulted [facility]: Dr. Norwood who is expected to see pt today. Payer: [place] [employer] PCP: Dr. Javier Pt was here a couple months ago for a planned MAIRA and went home at that time with his and OUTPT PT. DCP team will be following as full dx and POC unfold to assist with d/c issues and options. Advanced directive, confirm from FAMILY Start: 07/19/20 18:07 Freq: Q24H Status: Active Protocol: Document 07/20/20 10:21 CLL (Rec: 07/20/20 10:23 CLL [id number]) Advance Directive, confirm on record Time 10:22 Person contacted Patient Copy received No CM Discharge Assessment Start: 07/20/20 11:05 Freq: Status: Active Protocol: Document 07/20/20 11:05 ITV (Rec: 07/20/20 11:06 ITV [id number]) Discharge Planning Assessment Advance Directives? No History Provided By Patient,Medical Record Prior Living Arrangements House Household Members spouse Independent with ADL's Yes Is patient alert and oriented? Yes Review Status In Process
--- NOTE | 2020-07-20 11:12 | P.CONS_ITS ---
History of Present Illness Consult details Date Patient Seen: 07/20/20 Time Patient Seen: 11:00 Chief complaint: diverticulitis Reason for consult: Diverticulitis Requesting provider: Mando Padilla Narrative: Patient is a gentleman who developed lower abdominal pain little over week ago. He thought he had pulled muscle. It did not improve any for saw doctor on Tuesday. She examined him for hernia and found none. Told him to return if pain did improve. He had 2 loose bowel movements and then horrible pain with gas yesterday and went to the emergency room at [facility] in [place]. No vomiting. Had a temperature of a 100.8? in the emergency room. He was transferred here because of findings and a CT scan and I was asked to see him regarding this. The patient developed blood in his urine yesterday. He describes having chills and then sweating. No prior history of these symptoms though he has had kidney stones in the distant past. He thinks they were on the right side. His only abdominal procedures have been a laparoscopic umbilical hernia repair and bilateral inguinal hernia repairs. Denies any passage of blood or black stool per rectum. Last colonoscopy was performed at [facility] a year and a half ago and he had a few small polyps removed. Was recommended he have a repeat exam in 5 years. He has known diverticulosis. Meds Home Medications and Allergies Home Medications Medication Instructions Recorded Confirmed Type aspirin 81 mg PO DAILY 05/21/20 07/19/20 History gabapentin 300 mg PO BID 05/21/20 07/19/20 History naproxen sodium [Aleve] 440 mg PO BID 05/21/20 05/21/20 History hydrocodone-acetaminophen 1 tab PO Q4HR PRN #30 tab 05/29/20 Rx Allergies Allergy/AdvReac Type Severity Reaction Status Date / Time adhesive tape Allergy Mild Redness Verified 05/25/20 10:34 to skin if on longer than 3 days Review of Systems Review of Systems Narrative: Patient wears glasses. Denies double vision pain is eyes earache sore throats or trouble swallowing. No cough cold or asthma. No heart problems or chest pain. No history of hypertension. No pain like the present pain prior. No vomiting. No hematemesis or ulcers in the past. No history of blood in his urine despite having had 2 kidney stones pass. No trouble urinating. No seizures or blackouts. No anxiety or depression. No unusual bruising or bleeding. No new skin lesions. Exam Vital Signs (past 8 hours): - 07/20/20 04:46 07/20/20 05:00 07/20/20 08:50 Temperature 99.6 F 98.6 F Pulse Rate 67 69 Respiratory Rate 24 14 Blood Pressure 151/78 H 152/82 H Pulse Oximetry 95 95 97 Oxygen Delivery Method Room Air Oxygen Flow Rate 0 Narrative Exam Narrative: Very pleasant gentleman. A little bit of a rambling historian but his clarified matters. He is in no distress laying still. Vital signs noted. Eyes are nonicteric. Pupils equal round reactive to light. Conjunctiva pink. Oral mucosa dry. No splits in his lips. Ears without lesion. Nasal septum is midline no polyps seen. There are no nodes in the neck supraclavicular areas. Trachea is midline mobile. Thyroid is not enlarged. Patient has bilateral carotid bruits. Heart regular rate and rhythm without murmur gallop. No heave lift or thrill. Abdomen is protuberant and soft. He has tenderness mostly in the left lower quadrant and mid lower abdomen though there is also tenderness on the right. He also appears distended as well as protuberant. No hernias appreciated. Extremities without cyanosis clubbing or edema. Scars from his knee and hip replacement noted. The patient is alert and oriented x3. Speech rate and content are appropriate. Affect is appropriate. Objective Imaging CT scan - abdomen: My impression: Patient has diverticulitis of the sigmoid colon stretching across his lower abdomen from left to right. His large amount of stool in the right upper quadrant. I do not see any gallstones or gallbladder wall thickening. I do not see any kidney stones. No free air appreciated. No abscess seen. Labs Result Diagrams: 07/20/20 05:00 07/20/20 05:00 Labs: Laboratory Results - last 24 hr 07/20/20 07/20/20 07/20/20 05:00 05:00 05:00 WBC 8.0 RBC 3.92 L Hgb 11.1 L Hct 32.8 L MCV 83.7 MCH 28.2 MCHC 33.7 RDW 15.9 H Plt Count 203 Neut % (Auto) 79.2 H Lymph % (Auto) 10.5 L [place] % (Auto) 9.1 Eos % (Auto) 0.7 L Baso % (Auto) 0.5 Neut # (Auto) 6300 Lymph # (Auto) 800 L [place] # (Auto) 700 Eos # (Auto) 100 Baso # (Auto) 0 Sodium 135 L Potassium 4.1 Chloride 103 Carbon Dioxide 26 BUN 14 Creatinine 0.66 Estimated GFR > 60.0 BUN/Creatinine Ratio 21.2 Glucose 101 Calcium 8.7 Total Bilirubin Conjugated Bilirubin Unconjugated Bilirubin AST ALT Alkaline Phosphatase Total Protein Albumin Globulin Albumin/Globulin Ratio Procalcitonin 0.58 H 07/20/20 05:00 WBC RBC Hgb Hct MCV MCH MCHC RDW Plt Count Neut % (Auto) Lymph % (Auto) Cl[place] % (Auto) Eos % (Auto) Baso % (Auto) Neut # (Auto) Lymph # (Auto) [place] # (Auto) Eos # (Auto) Baso # (Auto) Sodium Potassium Chloride Carbon Dioxide BUN Creatinine Estimated GFR BUN/Creatinine Ratio Glucose Calcium Total Bilirubin 1.1 Conjugated Bilirubin 0.0 Unconjugated Bilirubin 0.8 AST 32 ALT 33 Alkaline Phosphatase 118 Total Protein 6.9 Albumin 3.6 Globulin 3.3 Albumin/Globulin Ratio 1.1 Procalcitonin Assessment & Plan Assessment & Plan narrative: Diverticulitis acute. Recommend bowel rest with IV antibiotics. Both are in progress already. If no clinical improvement over the next several days consider adding Flagyl to the antibiotics. History of hematuria with a history of kidney stones. This may be related to inflammation of his ureter bladder from the inflammation of the colon or it could be that he has another kidney stone. He basically has a week of untreated diverticulitis and has only had less than 1 day of treatment thus far. Hydration is being done. Obesity chronic. Will make any kind of physical therapy year other evaluations little more complicated and if patient should come to operation will certainly make the operation more difficult.
--- NOTE | 2020-07-20 12:49 | PM.PN.1 ---
Subjective Subjective Date Patient Seen: 07/20/20 Interval history: Patient is 69-year-old male with spinal stenosis admitted due to acute sigmoid diverticulitis. Patient feels distended and has pain across the lower abdomen. No nausea or vomiting. He had another episode of gross hematuria today. Exam Vital Signs (past 8 hours): - 07/20/20 05:00 07/20/20 08:50 Temperature 98.6 F Pulse Rate 69 Respiratory Rate 14 Blood Pressure 152/82 H Pulse Oximetry 95 97 Oxygen Delivery Method Room Air Oxygen Flow Rate 0 Narrative Exam Narrative: General: Alert and pleasant and cooperative Lungs: Clear to auscultation Heart: Regular rhythm Abdomen: Obese, moderately distended, tender in left lower quadrant, midline and right abdomen Extremities: Warm, dry without edema Neurological: Fully oriented, normal affect Objective Labs Result Diagrams: 07/20/20 05:00 07/20/20 05:00 Labs: Laboratory Results - last 24 hr 07/20/20 07/20/20 07/20/20 05:00 05:00 05:00 WBC 8.0 RBC 3.92 L Hgb 11.1 L Hct 32.8 L MCV 83.7 MCH 28.2 MCHC 33.7 RDW 15.9 H Plt Count 203 Neut % (Auto) 79.2 H Lymph % (Auto) 10.5 L [place] % (Auto) 9.1 Eos % (Auto) 0.7 L Baso % (Auto) 0.5 Neut # (Auto) 6300 Lymph # (Auto) 800 L [place] # (Auto) 700 Eos # (Auto) 100 Baso # (Auto) 0 Sodium 135 L Potassium 4.1 Chloride 103 Carbon Dioxide 26 BUN 14 Creatinine 0.66 Estimated GFR > 60.0 BUN/Creatinine Ratio 21.2 Glucose 101 Calcium 8.7 Total Bilirubin Conjugated Bilirubin Unconjugated Bilirubin AST ALT Alkaline Phosphatase Total Protein Albumin Globulin Albumin/Globulin Ratio Procalcitonin 0.58 H 07/20/20 05:00 WBC RBC Hgb Hct MCV MCH MCHC RDW Plt Count Neut % (Auto) Lymph % (Auto) [place] % (Auto) Eos % (Auto) Baso % (Auto) Neut # (Auto) Lymph # (Auto) [place] # (Auto) Eos # (Auto) Baso # (Auto) Sodium Potassium Chloride Carbon Dioxide BUN Creatinine Estimated GFR BUN/Creatinine Ratio Glucose Calcium Total Bilirubin 1.1 Conjugated Bilirubin 0.0 Unconjugated Bilirubin 0.8 AST 32 ALT 33 Alkaline Phosphatase 118 Total Protein 6.9 Albumin 3.6 Globulin 3.3 Albumin/Globulin Ratio 1.1 Procalcitonin Assessment & Plan Assessment & Plan narrative: Patient is 69-year-old male presenting with 1 week history of left lower abdominal pain progressing to the right side, episode of hematuria, chills and low-grade fever. 1. Acute sigmoid diverticulitis with diverticular abscess, present on admission, active -CT scan showing severe sigmoid diverticulitis and 2 cm left perinephric abscess -NPO except meds, bowel rest, LR 100 cc/hour -Zosyn 3.375 g IV q.6 hours for antibiotics -hydromorphone 0.5-1 mg IV as needed, Zofran as needed -appreciate consult by Dr. Norwood -repeat labs in a.m. 2. Acute hematuria, present on admission, active -outside UA with greater than 100 RBC, 1-2 WBC, no bacteria -etiology unclear and it would be unusual presentation for colovesical fistula -patient has history of kidney stones and may be passing a small stone or may have bladder inflammation associated with his diverticulitis -continue monitoring 3. Spinal stenosis, chronic -continue patient's gabapentin 300 mg b.i.d. DVT prophylaxis: Lovenox Quality VTE Deep Vein Thrombosis/Pulmonary Embolism Present on Admission: No
[2020-07-20] MEDS: GABAPENTIN 300 MG CAPSULE PO (20:40)
[2020-07-21] VITALS (10 sets, daily range): BP systolic 133–152; BP diastolic 65–79; PULSE 59–87; RESP 16–20; TEMP 36.5–37.6; O2SAT 93–96
[2020-07-21] MEDS: HYDROMORPHONE 1 MG INJ IV ×2 (01:23→19:19)
[2020-07-21] MEDS: PIPERACILLIN-TAZO 3.375 GM/50 ML FROZ.PIGGY IV ×4 (02:57→20:52)
[2020-07-21] MEDS: LACTATED RINGERS 1,000 ML 100 ML IV (02:58)
[2020-07-21 05:31] LABS: Add Manual Diff / Slide Review NO; Basophils Absolute Auto 100 /uL (0-100); Basophils Percent Auto 1.3 % (0-2); Eosinophils Absolute Auto 100 /uL (0-450); Eosinophils Percent Auto 0.8 % (2-4); Hematocrit 32.9 % (41-53); Lymphocytes Absolute Auto 900 /uL (1100-4500); Lymphocytes Percent Auto 10.9 % (25-40); Mean Corpuscular HGB Conc 33.5 % (30-36); Mean Corpuscular Hemoglobin 28.1 PG (26-34); Mean Corpuscular Volume 83.9 fL (80-100); Monocytes Absolute Auto 700 /uL (0-900); Monocytes Percent Auto 8.3 % (3-14); Neutrophils Absolute Auto 6900 /uL (1500-7000); Neutrophils Percent Auto 78.7 % (50-75); Platelet Count 208 X10^3/uL (150-400); Red Blood Cell Count 3.93 X10^6/uL (4.5-5.9); Red Cell Distribution Width 15.8 % (11.6-14.8); White Blood Cell Count 8.7 X10^3/uL (4.5-11.0)
[2020-07-21 05:36] LABS: HEMOLYSIS < 15 (0-50)
[2020-07-21 05:41] LABS: BUN Creatinine Ratio 23.7 (6-22); Blood Urea Nitrogen 18 mg/dL (9-20); Calcium 8.8 mg/dL (8.4-10.2); Carbon Dioxide 29 mmol/L (22-32); Chloride 101 mmol/L (98-107); Estimated Glomerular Filt Rate > 60.0 mL/min (>60); Glucose 95 mg/dL (80-110); Sodium 135 mmol/L (137-145)
[2020-07-21 05:49] LABS: Potassium 4.2 mmol/L (3.4-5.1)
[2020-07-21 05:54] LABS: Procalcitonin < 0.05 ng/mL (<0.5)
[2020-07-21] MEDS: ENOXAPARIN 40 MG/0.4 ML SYRINGE SUBCUT (07:42)
[2020-07-21] MEDS: HYDROMORPHONE 0.5 MG INJ IV ×2 (07:43→14:39)
[2020-07-21] MEDS: GABAPENTIN 300 MG CAPSULE PO ×2 (07:44→20:52)
[2020-07-21] MEDS: ACETAMINOPHEN 325 MG TABLET 650 MG PO (07:44)
--- NOTE | 2020-07-21 12:19 | P.PN_ITS ---
Subjective Subjective Date Patient Seen: 07/21/20 Interval history: Walter Burden is a 69-year-old male with a past medical history significant for spinal stenosis and previous diverticulitis x2 episodes who presented to the ED with progressive worsening abdominal pain over 1 week. The patient is resting in bed comfortably. He reports he is very hungry. Blood glucose checked and was low normal therefore added glucose source to IV fluids. He is passing a small amount of flatus but has had no BM. He continues to have abdominal pain mostly with palpation or trying to have a BM and abdominal distension but improved. He denies headache, shortness of breath, chest pain, nausea, vomiting, fever, chills, or dysuria. He is voiding without difficulty. He is up ambulating without assistance. Exam Vital Signs (past 8 hours): - 07/21/20 05:00 07/21/20 09:00 07/21/20 10:41 Temperature 97.7 F 98.2 F Pulse Rate 68 59 L Respiratory Rate 18 16 Blood Pressure 147/71 H 133/65 Pulse Oximetry 93 94 95 Oxygen Delivery Method Room Air Oxygen Flow Rate 0 Narrative Exam Narrative: General: Older male lying in bed and in no acute distress, well-developed, well- nourished, appropriately interactive. HEENT: Normocephalic, atraumatic. External ears without defect. Pupils equal, round, and reactive to light and accommodation. Anicteric sclerae, moist conjunctivae, and no lid lag. Oropharynx free of erythema and cobble stoning with moist mucosa. Neck: Supple with full range of motion. No jugular venous distension. No lymphadenopathy or thyromegaly. Cardiovascular: Regular rate and rhythm without murmurs, rubs, or gallops appreciated. Pulmonary: Clear to auscultation bilaterally without crackles, wheezes, or rhonchi. Normal respiratory effort with no use of accessory muscles. Abdomen: Soft, mild distension, tenderness to palpation especially in mid/right abdomen, bowel sounds present. Extremities: No clubbing, cyanosis, or edema. Skin: Normal temperature, turgor, and texture; no rash, ulcers, or subcutaneous nodules appreciated. Neurological: Cranial nerves grossly intact. Psychiatric: Normal mood and affect. Alert and oriented to person, place, and time. Objective Labs Result Diagrams: 07/21/20 05:13 07/21/20 05:13 Labs: Laboratory Results - last 24 hr 07/21/20 07/21/20 07/21/20 05:13 05:13 05:13 WBC 8.7 RBC 3.93 L Hgb 11.0 L Hct 32.9 L MCV 83.9 MCH 28.1 MCHC 33.5 RDW 15.8 H Plt Count 208 Neut % (Auto) 78.7 H Lymph % (Auto) 10.9 L [place] % (Auto) 8.3 Eos % (Auto) 0.8 L Baso % (Auto) 1.3 Neut # (Auto) 6900 Lymph # (Auto) 900 L [place] # (Auto) 700 Eos # (Auto) 100 Baso # (Auto) 100 Sodium 135 L Potassium 4.2 Chloride 101 Carbon Dioxide 29 BUN 18 Creatinine 0.76 Estimated GFR > 60.0 BUN/Creatinine Ratio 23.7 H Glucose 95 Calcium 8.8 Procalcitonin < 0.05 Assessment & Plan Assessment & Plan narrative: Walter Burden is a 69-year-old male with a past medical history significant for spinal stenosis and previous diverticulitis x2 episodes who presented to the ED with progressive worsening abdominal pain over 1 week. 1. Acute sigmoid diverticulitis with diverticular abscess, present on admission. Active. -Patient presented with progressive worsening left lower quadrant abdominal pain that spread across abdomen x1 week. -CT abdomen and pelvis with contrast demonstrated severe sigmoid diverticulitis with 2 cm abscess. -Continue NPO status except for medications for bowel rest. Continue IV fluid hydration switched from lactated Ringer's to D5 normal saline at 100 mL/hr. -Continue Zosyn 3.375 g IV every 6 hours to treat diverticulitis. -Continue symptomatic control with: Hydromorphone 0.5-1 mg IV every 4 hours as needed for pain and Zofran 4 mg IV every 4 hours as needed for nausea. -Consulted general surgery, Dr. Norwood, and we appreciate his time and recommendations. 2. Acute hematuria, present on admission, active -Outside urinalysis with greater than 100 RBC, 1-2 WBC, no bacteria. -Etiology unclear and it would be unusual presentation for colovesical fistula. -Patient has history of kidney stones and may be passing a small stone or may have bladder inflammation associated with his diverticulitis. Patient did endorse passing a clot in urine at home. -Continue monitoring urine output in which hematuria is resolving. 3. Spinal stenosis, chronic, present on admission. Stable. -Continue home gabapentin 300 mg twice daily. Code status: Full code, surrogate decision maker designated as spouse VTE prophylaxis: Lovenox, SCDs Disposition: Patient remains hospitalized. Quality VTE Deep Vein Thrombosis/Pulmonary Embolism Present on Admission: No
[2020-07-21] MEDS: DEXTROSE 5%-0.9% NS 1,000 ML 100 ML IV (13:31)
--- NOTE | 2020-07-21 15:36 | PC.NURSE ---
SHIFT SUMMARY: PATIENT AMBULATED WITH SPOUSE IN [place] THIS AM, NPO X ICE CHIPS AND MEDS, REPORTED TWO EPISODES OF INCREASED ABD PAIN TO 12/27 W/ REQUEST FOR IV DILAUDID, GIVEN 0.5MG PER ORDERS WITH RELIEF TO 09/28. IVF INFUSING PER ORDERS. AWAITING SURGICAL CONSULT. NO STOOLS THIS SHIFT.
--- NOTE | 2020-07-21 18:13 | P.PN_ITS ---
Subjective Subjective Date Patient Seen: 07/21/20 Time Patient Seen: 18:14 Interval history: The patient is passing a small amount of flatus. He thinks it is making feel little better. He believes he feels better than yesterday. He did get a good night's sleep last night. He would like to take a shower. Exam Vital Signs (past 8 hours): - 07/21/20 10:41 07/21/20 13:00 07/21/20 17:00 Temperature 98.2 F 98.3 F Pulse Rate 59 L 65 Respiratory Rate 16 16 Blood Pressure 133/65 140/77 Pulse Oximetry 95 96 96 Oxygen Delivery Method Room Air Oxygen Flow Rate 0 Narrative Exam Narrative: Looks tired and weak. No jaundice. Lungs are clear to auscultation without rales or rhonchi. Heart regular rate and rhythm without murmur gallop. Abdomen is protuberant and distended. It is soft. There is still tenderness across the lower abdomen but the upper abdomen is much less tender than yesterday and even lower abdomen is less tender. Vital signs are noted. Objective Labs Result Diagrams: 07/21/20 05:13 07/21/20 05:13 Labs: Laboratory Results - last 24 hr 07/21/20 07/21/20 07/21/20 05:13 05:13 05:13 WBC 8.7 RBC 3.93 L Hgb 11.0 L Hct 32.9 L MCV 83.9 MCH 28.1 MCHC 33.5 RDW 15.8 H Plt Count 208 Neut % (Auto) 78.7 H Lymph % (Auto) 10.9 L [place] % (Auto) 8.3 Eos % (Auto) 0.8 L Baso % (Auto) 1.3 Neut # (Auto) 6900 Lymph # (Auto) 900 L [place] # (Auto) 700 Eos # (Auto) 100 Baso # (Auto) 100 Sodium 135 L Potassium 4.2 Chloride 101 Carbon Dioxide 29 BUN 18 Creatinine 0.76 Estimated GFR > 60.0 BUN/Creatinine Ratio 23.7 H Glucose 95 Calcium 8.8 Procalcitonin < 0.05 Assessment & Plan Assessment & Plan narrative: Patient doing well overall. Slowly improving. Will continue NPO except ice and broad-spectrum antibiotics. May shower. Hope for significant improvement either tomorrow or the next day. Quality VTE Deep Vein Thrombosis/Pulmonary Embolism Present on Admission: No
--- NOTE | 2020-07-21 23:55 | PC.NURSE ---
Addendum entered by Latosha Odonnell R.N. 07/22/20 03:29: Patient complains of 5/10 left groin gas-like pain so medicated with Dilaudid. Also found to have elevated temp of 100.3 so medicated with Tylenol. BP also elevated at this time at 160/80. Addendum entered by Latosha Odonnell R.N. 07/22/20 02:10: Patient found standing at bedside using urinal with bed alarm sounding. Both and patient upset that bed alarm was on. Found patient to be steady on feet so alarm not reactivated once back in bed. Educated on fall prevention. Original Note: Patient is alert and oriented. Breath sounds diminished but CTA; using CPAP on RA with sat of 94%. HRR. BP 140/77. Denies nausea. BT present and states he is passing small amounts flatus. Is tender across lower abdomen and states it radiates upward to umbilicus. Denies pain/declines need for pain medication. Denies dysuria, frequency or urgency with urination. Is able to move himself in bed. Gait is not assessed but report by evening RN states he is SBA when out of bed. Remains NPO except for ice chips/sips with meds. rooming in. Fall risk score is moderate and bed alarm is activated for safety; patient verbalizes understanding.
[2020-07-22] VITALS (12 sets, daily range): BP systolic 125–160; BP diastolic 65–80; PULSE 61–76; RESP 15–20; TEMP 36.7–38.1; O2SAT 93–98
[2020-07-22] MEDS: DEXTROSE 5%-0.9% NS 1,000 ML 100 ML IV (01:12)
[2020-07-22] MEDS: PIPERACILLIN-TAZO 3.375 GM/50 ML FROZ.PIGGY IV ×4 (03:05→20:41)
[2020-07-22] MEDS: HYDROMORPHONE 0.5 MG INJ IV ×3 (03:20→15:25)
[2020-07-22] MEDS: ACETAMINOPHEN 325 MG TABLET 650 MG PO (03:26)
[2020-07-22] MEDS: GABAPENTIN 300 MG CAPSULE PO ×2 (08:59→20:41)
[2020-07-22] MEDS: ENOXAPARIN 40 MG/0.4 ML SYRINGE SUBCUT (08:59)
--- NOTE | 2020-07-22 10:47 | PC.NURSE ---
Patient has had moderate BM today, brown and soft, semi formed. Patient Bowel tones active in all quadrants, passing gas. States that he is hungry. Pain is 1-4/10, 0.5mg IV dilaudid PRN is managing pain. Patient was given IS and encouraged to move and ambulate in hallways, is walking w/ patient.
--- NOTE | 2020-07-22 13:02 | P.PN_ITS ---
Subjective Subjective Date Patient Seen: 07/22/20 Interval history: Walter Burden is a 69-year-old male with a past medical history significant for obstructive sleep apnea on CPAP, spinal stenosis and previous diverticulitis x2 episodes who presented to the ED with progressive worsening abdominal pain over 1 week. The patient is resting in bed comfortably. He had a large loose bowel movement this morning. Plan to start clear liquid diet today. He continues to have abdominal pain and mild abdominal distension but improved. He also endorses mild cough. Encouraged use of incentive spirometer. He has no other complaints and denies headache, sore throat, rhinitis, shortness of breath, chest pain, nausea, vomiting, fever, chills, or dysuria. He is voiding and eliminating wit hout difficulty. He is up ambulating without assistance. Exam Vital Signs (past 8 hours): - 07/22/20 07:00 07/22/20 10:45 07/22/20 11:00 Temperature 98.0 F 99.3 F Pulse Rate 61 66 Respiratory Rate 16 15 Blood Pressure 129/68 143/72 H Pulse Oximetry 98 98 96 Oxygen Delivery Method Room Air Oxygen Flow Rate 0 Narrative Exam Narrative: General: Older male lying in bed and in no acute distress, well-developed, well- nourished, appropriately interactive. HEENT: Normocephalic, atraumatic. External ears without defect. Pupils equal, round, and reactive to light. Anicteric sclerae, moist conjunctivae, and no lid lag. Oropharynx free of erythema and cobble stoning with moist mucosa. Neck: Supple with full range of motion. No jugular venous distension. No lymphadenopathy or thyromegaly. Cardiovascular: Regular rate and rhythm without murmurs, rubs, or gallops appreciated. Pulmonary: Diminished at bases but clear to auscultation throughout without crackles, wheezes, or rhonchi. Normal respiratory effort with no use of accessory muscles. Abdomen: Soft, bowel sounds present, mild distension, and tenderness to palpation especially in lower abdomen that is slightly improved. Extremities: No clubbing, cyanosis, or edema. Skin: Normal temperature, turgor, and texture; no rash, ulcers, or subcutaneous nodules appreciated. Neurological: Cranial nerves grossly intact. Psychiatric: Normal mood and affect. Alert and oriented to person, place, and time. Objective Labs Result Diagrams: 07/21/20 05:13 07/21/20 05:13 Assessment & Plan Assessment & Plan narrative: Walter Burden is a 69-year-old male with a past medical history significant for obstructive sleep apnea on CPAP, spinal stenosis and previous diverticulitis x2 episodes who presented to the ED with progressive worsening abdominal pain over 1 week. 1. Acute sigmoid diverticulitis with diverticular abscess, present on admissio n. Active. -Patient presented with progressive worsening left lower quadrant abdominal pain that spread across abdomen x1 week. -Outside CT abdomen and pelvis with contrast demonstrated severe sigmoid diverticulitis with 2 cm abscess. -Patient was NPO status for bowel rest and patient had return of bowel function with large bowel movement today. Plan to start clear liquid diet. Discontinued IV fluids. -Continue Zosyn 3.375 g IV every 6 hours to treat diverticulitis. -Continue symptomatic control with: Hydromorphone 0.5-1 mg IV every 4 hours as needed for pain and Zofran 4 mg IV every 4 hours as needed for nausea. -Consulted general surgery, Dr. Norwood, and we appreciate his time and rec ommendations. 2. Acute hematuria, present on admission. Resolved. -Outside urinalysis with greater than 100 RBC, 1-2 WBC, no bacteria. -Etiology unclear and it would be unusual presentation for colovesical fistula. -Patient has history of nephrolithiasis and may have passed a small stone or may have bladder inflammation associated with his diverticulitis. Patient did endorse passing a small blood clot in urine at home. -Continue monitoring urine output. Hematuria has resolved. 3. Spinal stenosis, chronic, present on admission. Stable. -Continue home gabapentin 300 mg twice daily. 4. Obstructive sleep apnea on CPAP, chronic, present on admission. Stable. -Continue home CPAP per RT protocol. Code status: Full code, surrogate decision maker designated as spouse VTE prophylaxis: Lovenox, SCDs Disposition: Patient will likely discharge home in several days once diverticulitis treated and improving and able to tolerate slow advancement of diet. Quality VTE Deep Vein Thrombosis/Pulmonary Embolism Present on Admission: No
--- NOTE | 2020-07-22 17:32 | PM.PN.1 ---
Subjective Subjective Date Patient Seen: 07/22/20 Time Patient Seen: 17:32 Interval history: The patient feels better than yesterday. Had a large bowel movement today. Less abdominal pain and tenderness. Has been walking. Exam Vital Signs (past 8 hours): - 07/22/20 10:45 07/22/20 11:00 07/22/20 14:00 Temperature 99.3 F Pulse Rate 66 Respiratory Rate 15 Blood Pressure 143/72 H Pulse Oximetry 98 96 98 07/22/20 15:49 Temperature 100.6 F H Pulse Rate 62 Respiratory Rate 20 Blood Pressure 125/65 Pulse Oximetry 94 Oxygen Delivery Method Room Air Oxygen Flow Rate 0 Narrative Exam Narrative: Protuberant abdomen. Less tender than yesterday but still a bit distended as well. No guarding. Objective Labs Result Diagrams: 07/21/20 05:13 07/21/20 05:13 Assessment & Plan Assessment & Plan narrative: Diverticulitis. Slowly improving. White count and differential are okay. He has been afebrile. Continue IV antibiotics. Will advance to full liquid diet. Quality VTE Deep Vein Thrombosis/Pulmonary Embolism Present on Admission: No
[2020-07-23] VITALS (12 sets, daily range): BP systolic 112–152; BP diastolic 58–73; PULSE 64–77; RESP 16–18; TEMP 36.7–37.8; O2SAT 95–98
[2020-07-23] MEDS: PIPERACILLIN-TAZO 3.375 GM/50 ML FROZ.PIGGY IV ×4 (02:55→20:09)
[2020-07-23 05:42] LABS: Add Manual Diff / Slide Review NO; Basophils Absolute Auto 0 /uL (0-100); Basophils Percent Auto 0.5 % (0-2); Eosinophils Absolute Auto 100 /uL (0-450); Eosinophils Percent Auto 1.3 % (2-4); Hemoglobin 11.5 g/dL (13.5-17.5); Lymphocytes Absolute Auto 900 /uL (1100-4500); Lymphocytes Percent Auto 11.1 % (25-40); Mean Corpuscular Hemoglobin 27.9 PG (26-34); Mean Corpuscular Volume 84.7 fL (80-100); Monocytes Absolute Auto 800 /uL (0-900); Monocytes Percent Auto 9.2 % (3-14); Neutrophils Absolute Auto 6500 /uL (1500-7000); Neutrophils Percent Auto 77.9 % (50-75); Platelet Count 208 X10^3/uL (150-400); Red Blood Cell Count 4.13 X10^6/uL (4.5-5.9); Red Cell Distribution Width 16.2 % (11.6-14.8); White Blood Cell Count 8.3 X10^3/uL (4.5-11.0)
[2020-07-23 05:51] LABS: Alanine Aminotransferase 19 IU/L (<50); Albumin 3.5 g/dL (3.5-5.0); Alkaline Phosphatase 116 U/L (38-126); Aspartate Aminotransferase 25 IU/L (17-59); BUN Creatinine Ratio 16.2 (6-22); Bilirubin Total 0.9 mg/dL (0.2-1.3); Blood Urea Nitrogen 11 mg/dL (9-20); Calcium 8.5 mg/dL (8.4-10.2); Carbon Dioxide 30 mmol/L (22-32); Chloride 103 mmol/L (98-107); Estimated Glomerular Filt Rate > 60.0 mL/min (>60); Globulin 3.6 g/dL (1.7-4.1); Glucose 111 mg/dL (80-110); HEMOLYSIS < 15 (0-50); Magnesium 2.2 mg/dL (1.6-2.3); Sodium 138 mmol/L (137-145); Total Protein 7.1 g/dL (6.3-8.2)
[2020-07-23 06:04] LABS: Procalcitonin 0.05 ng/mL (<0.5)
[2020-07-23] MEDS: GABAPENTIN 300 MG CAPSULE PO ×2 (08:39→20:09)
[2020-07-23] MEDS: HYDROMORPHONE 0.5 MG INJ IV ×2 (08:39→20:18)
[2020-07-23] MEDS: ENOXAPARIN 40 MG/0.4 ML SYRINGE SUBCUT (08:39)
[2020-07-23] MEDS: SODIUM CHLORIDE 0.9% FLUSH 10 ML IV ×2 (08:40→20:09)
--- NOTE | 2020-07-23 09:13 | CM.DPC ---
DCP Cont: Per Surgeon, pt seems to be improving and has had a bm and ambulating halls and pain reduced and will advance his diet to see how pt tolerates. Per RN, pt ambulating halls with spouse independently and has appetite. Plan: SW to follow closely for possible d/c home today or tomorrow pending advancing diet and how well pt tolerates. Supportive spouse has been bedside. HECTOR Henley
--- NOTE | 2020-07-23 14:08 | PM.PN.1 ---
Subjective Subjective Date Patient Seen: 07/23/20 Time Patient Seen: 12:12 Interval history: The patient is feeling a little worse right now. He had a good night and was feeling great to the got up and moved around a lot this morning. He has been tolerating p.o. that has been ordered. Making a lot of urine. Exam Vital Signs (past 8 hours): - 07/23/20 07:30 07/23/20 07:48 07/23/20 11:03 Temperature 98.0 F 98.5 F Pulse Rate 64 77 Respiratory Rate 16 16 Blood Pressure 141/67 H 145/65 H Pulse Oximetry 97 95 95 Oxygen Delivery Method Room Air Oxygen Flow Rate 0 Narrative Exam Narrative: Lungs are clear to auscultation no rales or rhonchi. Heart regular rate and rhythm without murmur gallop. Abdomen is distended. No obvious tenderness. Objective Labs Result Diagrams: 07/23/20 05:22 07/23/20 05:22 Labs: Laboratory Results - last 24 hr 07/23/20 07/23/20 07/23/20 05:22 05:22 05:22 WBC 8.3 RBC 4.13 L Hgb 11.5 L Hct 35.0 L MCV 84.7 MCH 27.9 MCHC 33.0 RDW 16.2 H Plt Count 208 Neut % (Auto) 77.9 H Lymph % (Auto) 11.1 L [place] % (Auto) 9.2 Eos % (Auto) 1.3 L Baso % (Auto) 0.5 Neut # (Auto) 6500 Lymph # (Auto) 900 L [place] # (Auto) 800 Eos # (Auto) 100 Baso # (Auto) 0 Sodium 138 Potassium 4.0 Chloride 103 Carbon Dioxide 30 BUN 11 Creatinine 0.68 Estimated GFR > 60.0 BUN/Creatinine Ratio 16.2 Glucose 111 H Calcium 8.5 Magnesium 2.2 Total Bilirubin 0.9 AST 25 ALT 19 Alkaline Phosphatase 116 Total Protein 7.1 Albumin 3.5 Globulin 3.6 Albumin/Globulin Ratio 1.0 Procalcitonin 0.05 Assessment & Plan Assessment & Plan narrative: Continue broad-spectrum IV antibiotics. Will consider some plain x-rays and a do clock suppository today. I would like to get some idea of how distended his bowel is and how much of what I am seeing is just obesity. Quality VTE Deep Vein Thrombosis/Pulmonary Embolism Present on Admission: No
--- NOTE | 2020-07-23 14:11 | DI.RAD.S_ITS ---
PROCEDURE: XR ACUTE ABDOMEN SERIES INDICATIONS: Pt w diverticulitis,Wish to assess intestinal distention TECHNIQUE: One view chest and 3 views of the abdomen were acquired. COMPARISON: Outside Facility, RG, CT ABDOMEN/PELVIS WITH CONTRAST, 07/19/2020, 13:46. FINDINGS: Surgical changes and devices: Right hip arthroplasty is noted. Surgical giorgio are seen overlying the pelvis. Chest: Lungs are clear. Heart size is normal. No pleural effusions. No pneumoperitoneum. Abdomen: Bowel gas pattern is nonspecific without significantly dilated loops of small or large bowel. A nonspecific calcification is seen projecting over the left abdomen that appears to be associated with the bowel rather than the left kidney on the CT from 07/19/2020. Visualized solid organ contours appear normal. Bones: No suspicious bony lesions. IMPRESSION: Nonspecific bowel gas pattern throughout the abdomen and pelvis without significant dilation of air-filled bowel loops. Dictated by: Hugh Kennedy M.D. on 07/23/2020 at 15:15 Approved by: Hugh Kennedy M.D. on 07/23/2020 at 15:19
--- NOTE | 2020-07-23 14:22 | PM.PN.1 ---
Subjective Subjective Date Patient Seen: 07/23/20 Interval history: Walter Burden is a 69-year-old male with a past medical history significant for obstructive sleep apnea on CPAP, spinal stenosis and previous diverticulitis x2 episodes who presented to the ED with progressive worsening abdominal pain over 1 week. The patient is resting in bed and appears mildly uncomfortable. He reports he had a ?blowout this morning.? He reports increased lower abdominal pain especially with any movement. He has no rigidity or rebound on exam. He also had some nausea/indigestion with yogurt this morning. He has no other complaints and denies headache, shortness of breath, chest pain, vomiting, fever, chills, or dysuria. He is voiding and eliminating without difficulty. He is up ambulating without assistance. Exam Vital Signs (past 8 hours): - 07/23/20 11:03 07/23/20 15:52 07/23/20 16:25 Temperature 98.5 F 98.9 F Pulse Rate 77 64 Respiratory Rate 16 17 Blood Pressure 145/65 H 112/58 L Pulse Oximetry 95 95 96 Oxygen Delivery Method Room Air Oxygen Flow Rate 0 Narrative Exam Narrative: General: Older male lying in bed and in no acute distress, appears uncomfortable, well-developed, well-nourished, appropriately interactive. HEENT: Normocephalic, atraumatic. External ears without defect. Pupils equal, round, and reactive to light. Anicteric sclerae, moist conjunctivae, and no lid lag. Oropharynx free of erythema and cobble stoning with moist mucosa. Neck: Supple with full range of motion. No jugular venous distension. No lymphadenopathy or thyromegaly. Cardiovascular: Regular rate and rhythm without murmurs, rubs, or gallops appreciated. Pulmonary: Diminished at bases but clear to auscultation throughout without crackles, wheezes, or rhonchi. Normal respiratory effort with no use of accessory muscles. Abdomen: Soft, bowel sounds present, mild distension, and more tenderness to palpation in lower abdomen today. No guarding, rigidity or rebound. Extremities: No clubbing, cyanosis, or edema. Skin: Normal temperature, turgor, and texture; no rash, ulcers, or subcutaneous nodules appreciated. Neurological: Cranial nerves grossly intact. Psychiatric: Normal mood and affect. Alert and oriented to person, place, and time. Objective Labs Result Diagrams: 07/23/20 05:22 07/23/20 05:22 Labs: Laboratory Results - last 24 hr 07/23/20 07/23/20 07/23/20 05:22 05:22 05:22 WBC 8.3 RBC 4.13 L Hgb 11.5 L Hct 35.0 L MCV 84.7 MCH 27.9 MCHC 33.0 RDW 16.2 H Plt Count 208 Neut % (Auto) 77.9 H Lymph % (Auto) 11.1 L [place] % (Auto) 9.2 Eos % (Auto) 1.3 L Baso % (Auto) 0.5 Neut # (Auto) 6500 Lymph # (Auto) 900 L [place] # (Auto) 800 Eos # (Auto) 100 Baso # (Auto) 0 Sodium 138 Potassium 4.0 Chloride 103 Carbon Dioxide 30 BUN 11 Creatinine 0.68 Estimated GFR > 60.0 BUN/Creatinine Ratio 16.2 Glucose 111 H Calcium 8.5 Magnesium 2.2 Total Bilirubin 0.9 AST 25 ALT 19 Alkaline Phosphatase 116 Total Protein 7.1 Albumin 3.5 Globulin 3.6 Albumin/Globulin Ratio 1.0 Procalcitonin 0.05 Assessment & Plan Assessment & Plan narrative: Walter Burden is a 69-year-old male with a past medical history significant for obstructive sleep apnea on CPAP, spinal stenosis and previous diverticulitis x2 episodes who presented to the ED with progressive worsening abdominal pain over 1 week. 1. Acute sigmoid diverticulitis with diverticular abscess, present on admission. Active. -Patient presented with progressive worsening left lower quadrant abdominal pain that spread across abdomen x1 week. -Outside CT abdomen and pelvis with contrast demonstrated severe sigmoid diverticulitis with 2 cm abscess. -Continue Zosyn 3.375 g IV every 6 hours to treat diverticulitis. -Continue symptomatic control with: Hydromorphone 0.5-1 mg IV every 4 hours as needed for pain and Zofran 4 mg IV every 4 hours as needed for nausea. Patient has been on a clear/full liquid diet which he has tolerated thus far. -Consulted general surgery, Dr. Norwood, and we appreciate his time and recommendations. 2. Acute hematuria, present on admission. Resolved. -Outside urinalysis with greater than 100 RBC, 1-2 WBC, no bacteria. -Etiology unclear and it would be unusual presentation for colovesical fistula. -Patient has history of nephrolithiasis and may have passed a small stone or may have bladder inflammation associated with his diverticulitis. Patient did endorse passing a small blood clot in urine at home. -Continue monitoring urine output. Hematuria has resolved. 3. Spinal stenosis, chronic, present on admission. Stable. -Continue home gabapentin 300 mg twice daily. 4. Obstructive sleep apnea on CPAP, chronic, present on admission. Stable. -Continue home CPAP per RT protocol. Code status: Full code, surrogate decision maker designated as spouse VTE prophylaxis: Mary[place] SCDs Disposition: Patient will likely discharge home in several days once diverticulitis treated and improving and able to tolerate slow advancement of diet. Quality VTE Deep Vein Thrombosis/Pulmonary Embolism Present on Admission: No
[2020-07-23] MEDS: HYDROMORPHONE 1 MG INJ IV (14:31)
[2020-07-23] MEDS: KETOROLAC 30 MG/ML VIAL IV (14:35)
[2020-07-23] MEDS: ACETAMINOPHEN 325 MG TABLET 650 MG PO (20:38)
[2020-07-24] VITALS (11 sets, daily range): BP systolic 118–154; BP diastolic 64–88; PULSE 61–84; RESP 16–18; TEMP 36.7–38.2; O2SAT 94–100
[2020-07-24] MEDS: PIPERACILLIN-TAZO 3.375 GM/50 ML FROZ.PIGGY IV ×4 (03:15→22:35)
[2020-07-24] MEDS: SODIUM CHLORIDE 0.9% FLUSH 10 ML IV ×3 (03:16→22:36)
[2020-07-24] MEDS: HYDROMORPHONE 0.5 MG INJ IV ×2 (04:48→21:33)
[2020-07-24 05:59] LABS: Add Manual Diff / Slide Review NO; Basophils Absolute Auto 0 /uL (0-100); Basophils Percent Auto 0.4 % (0-2); Eosinophils Absolute Auto 100 /uL (0-450); Eosinophils Percent Auto 1.8 % (2-4); Lymphocytes Absolute Auto 900 /uL (1100-4500); Lymphocytes Percent Auto 11.8 % (25-40); Mean Corpuscular HGB Conc 33.2 % (30-36); Mean Corpuscular Hemoglobin 27.7 PG (26-34); Mean Corpuscular Volume 83.5 fL (80-100); Monocytes Absolute Auto 700 /uL (0-900); Monocytes Percent Auto 8.8 % (3-14); Neutrophils Absolute Auto 5800 /uL (1500-7000); Neutrophils Percent Auto 77.2 % (50-75); Platelet Count 206 X10^3/uL (150-400); Red Blood Cell Count 3.95 X10^6/uL (4.5-5.9); White Blood Cell Count 7.5 X10^3/uL (4.5-11.0)
[2020-07-24 06:15] LABS: BUN Creatinine Ratio 16.7 (6-22); Blood Urea Nitrogen 11 mg/dL (9-20); Calcium 8.4 mg/dL (8.4-10.2); Carbon Dioxide 31 mmol/L (22-32); Chloride 104 mmol/L (98-107); Estimated Glomerular Filt Rate > 60.0 mL/min (>60); Glucose 119 mg/dL (80-110); HEMOLYSIS < 15 (0-50); Magnesium 2.1 mg/dL (1.6-2.3); Potassium 3.9 mmol/L (3.4-5.1); Sodium 138 mmol/L (137-145)
[2020-07-24] MEDS: HYDROMORPHONE 1 MG INJ IV ×3 (07:30→14:45)
[2020-07-24] MEDS: GABAPENTIN 300 MG CAPSULE PO ×2 (09:46→21:39)
[2020-07-24] MEDS: ENOXAPARIN 40 MG/0.4 ML SYRINGE SUBCUT (09:46)
[2020-07-24] MEDS: ACETAMINOPHEN 325 MG TABLET 650 MG PO ×2 (09:47→21:39)
[2020-07-24] MEDS: BISACODYL 10 MG SUPP PR (13:59)
--- NOTE | 2020-07-24 15:02 | PM.PN.1 ---
Subjective Subjective Date Patient Seen: 07/24/20 Interval history: Walter Burden is a 69-year-old male with a past medical history significant for obstructive sleep apnea on CPAP, spinal stenosis and previous diverticulitis x2 episodes who presented to the ED with progressive worsening abdominal pain over 1 week. The patient is resting in bed and appears comfortable. He continues to have intermittent episodes of significant lower abdominal pain that seem to be precipitated by movement or BMs. He otherwise is comfortable and having minimal abdominal pain while at bedside. He has no other complaints and denies headache, shortness of breath, chest pain, vomiting, fever, chills, or dysuria. He is voiding and eliminating without difficulty. He is up ambulating without assistance. Exam Vital Signs (past 8 hours): - 07/24/20 11:50 07/24/20 14:08 07/24/20 16:07 Temperature 98.2 F 98.9 F Pulse Rate 61 63 Respiratory Rate 16 18 Blood Pressure 127/64 131/72 Pulse Oximetry 96 96 97 Oxygen Delivery Method Room Air Oxygen Flow Rate 0 Narrative Exam Narrative: General: Older male lying in bed and in no acute distress, appears comfortable, well-developed, well-nourished, appropriately interactive. HEENT: Normocephalic, atraumatic. External ears without defect. Pupils equal, round, and reactive to light. Anicteric sclerae, moist conjunctivae, and no lid lag. Oropharynx free of erythema and cobble stoning with moist mucosa. Neck: Supple with full range of motion. No jugular venous distension. No lymphadenopathy or thyromegaly. Cardiovascular: Regular rate and rhythm without murmurs, rubs, or gallops appreciated. Pulmonary: Clear to auscultation throughout without crackles, wheezes, or rhonchi. Normal respiratory effort with no use of accessory muscles. Abdomen: Soft, bowel sounds present, distension resolved and tenderness to palpation in lower abdomen improved. No guarding, rigidity or rebound. Extremities: No clubbing, cyanosis, or edema. Skin: Normal temperature, turgor, and texture; no rash, ulcers, or subcutaneous nodules appreciated. Neurological: Cranial nerves grossly intact. Psychiatric: Normal mood and affect. Alert and oriented to person, place, and time. Objective Labs Result Diagrams: 07/25/20 05:13 07/25/20 05:13 Labs: Laboratory Results - last 24 hr 07/24/20 07/24/20 05:37 05:37 WBC 7.5 RBC 3.95 L Hgb 11.0 L Hct 33.0 L MCV 83.5 MCH 27.7 MCHC 33.2 RDW 16.0 H Plt Count 206 Neut % (Auto) 77.2 H Lymph % (Auto) 11.8 L [place] % (Auto) 8.8 Eos % (Auto) 1.8 L Baso % (Auto) 0.4 Neut # (Auto) 5800 Lymph # (Auto) 900 L [place] # (Auto) 700 Eos # (Auto) 100 Baso # (Auto) 0 Sodium 138 Potassium 3.9 Chloride 104 Carbon Dioxide 31 BUN 11 Creatinine 0.66 Estimated GFR > 60.0 BUN/Creatinine Ratio 16.7 Glucose 119 H Calcium 8.4 Magnesium 2.1 Assessment & Plan Assessment & Plan narrative: Walter Burden is a 69-year-old male with a past medical history significant for obstructive sleep apnea on CPAP, spinal stenosis and previous diverticulitis x2 episodes who presented to the ED with progressive worsening abdominal pain over 1 week. 1. Acute sigmoid diverticulitis with diverticular abscess, present on admission. Active. -Patient presented with progressive worsening left lower quadrant abdominal pain that spread across abdomen x1 week. -Outside CT abdomen and pelvis with contrast demonstrated severe sigmoid diverticulitis with 2 cm abscess. -Continue Zosyn 3.375 g IV every 6 hours and surgery added metronidazole 500 mg every 8 hours to treat diverticulitis. -Continue pain control with: Started oxycodone 5 mg every 4 hours as needed for moderate pain now that patient is eating and hydromorphone 0.5-1 mg IV every 4 hours as needed for severe break through pain. -Continue Zofran 4 mg IV every 4 hours as needed for nausea. -Continue to advance diet as tolerated and started regular soft diet today. Patient has been on a clear/full liquid diet which he tolerated well. -Consulted general surgery, Dr. Norwood, and we appreciate his time and recommendations. Plan to repeat CT in 1-2 days and will need 2 week course of antibiotics total. Patient will likely discharge on levofloxacin and metronidazole if CT demonstrates improvement with treatment and when cleared by surgery. 2. Acute hematuria, present on admission. Resolved. -Outside urinalysis with greater than 100 RBC, 1-2 WBC, no bacteria. -Etiology unclear and it would be unusual presentation for colovesical fistula. -Patient has history of nephrolithiasis and may have passed a small stone or may have bladder inflammation associated with his diverticulitis. Patient did endorse passing a small blood clot in urine at home. -Continue monitoring urine output. Hematuria has resolved. 3. Spinal stenosis, chronic, present on admission. Stable. -Continue home gabapentin 300 mg twice daily. 4. Obstructive sleep apnea on CPAP, chronic, present on admission. Stable. -Continue home CPAP per RT protocol. Code status: Full code, surrogate decision maker designated as spouse VTE prophylaxis: Lovenox, SCDs Disposition: Patient will likely discharge home in several days once diverticulitis treated and improving and able to tolerate slow advancement of diet. Quality VTE Deep Vein Thrombosis/Pulmonary Embolism Present on Admission: No
--- NOTE | 2020-07-24 21:22 | PM.PN.1 ---
Subjective Subjective Date Patient Seen: 07/24/20 Time Patient Seen: 21:00 Interval history: Patient under treatment for diverticulitis. Having a better day today. Eating all right. Had a bowel movement after given a suppository. Exam Vital Signs (past 8 hours): - 07/24/20 14:08 07/24/20 16:07 07/24/20 20:17 Temperature 98.9 F 100.7 F H Pulse Rate 63 67 Respiratory Rate 18 16 Blood Pressure 131/72 118/75 Pulse Oximetry 96 97 95 Oxygen Delivery Method Room Air Oxygen Flow Rate 0 Narrative Exam Narrative: Abdomen is is soft. He still has some localized discomfort across his lower abdomen. Vital signs noted. Objective Labs Result Diagrams: 07/24/20 05:37 07/24/20 05:37 Labs: Laboratory Results - last 24 hr 07/24/20 07/24/20 05:37 05:37 WBC 7.5 RBC 3.95 L Hgb 11.0 L Hct 33.0 L MCV 83.5 MCH 27.7 MCHC 33.2 RDW 16.0 H Plt Count 206 Neut % (Auto) 77.2 H Lymph % (Auto) 11.8 L [place] % (Auto) 8.8 Eos % (Auto) 1.8 L Baso % (Auto) 0.4 Neut # (Auto) 5800 Lymph # (Auto) 900 L [place] # (Auto) 700 Eos # (Auto) 100 Baso # (Auto) 0 Sodium 138 Potassium 3.9 Chloride 104 Carbon Dioxide 31 BUN 11 Creatinine 0.66 Estimated GFR > 60.0 BUN/Creatinine Ratio 16.7 Glucose 119 H Calcium 8.4 Magnesium 2.1 Assessment & Plan Assessment & Plan narrative: Slowly improving. I added Flagyl to his IV antibiotics. Consider repeating his CT scan in the next day or to to re-evaluate the prior findings. Quality VTE Deep Vein Thrombosis/Pulmonary Embolism Present on Admission: No
[2020-07-24] MEDS: metroNIDAZOLE 500 MG/100 ML PIGGYBACK 100 MG IV (21:36)
[2020-07-25] VITALS (9 sets, daily range): BP systolic 117–145; BP diastolic 63–69; PULSE 58–63; RESP 16–18; TEMP 36.1–37.2; O2SAT 95–99
[2020-07-25] MEDS: PIPERACILLIN-TAZO 3.375 GM/50 ML FROZ.PIGGY IV ×4 (02:59→21:21)
[2020-07-25] MEDS: metroNIDAZOLE 500 MG/100 ML PIGGYBACK 100 MG IV ×3 (04:57→22:13)
[2020-07-25 05:47] LABS: Add Manual Diff / Slide Review NO; Basophils Absolute Auto 0 /uL (0-100); Basophils Percent Auto 0.3 % (0-2); Eosinophils Absolute Auto 100 /uL (0-450); Eosinophils Percent Auto 1.8 % (2-4); Hematocrit 32.6 % (41-53); Hemoglobin 10.8 g/dL (13.5-17.5); Lymphocytes Absolute Auto 1000 /uL (1100-4500); Lymphocytes Percent Auto 13.5 % (25-40); Mean Corpuscular HGB Conc 33.1 % (30-36); Mean Corpuscular Hemoglobin 27.7 PG (26-34); Mean Corpuscular Volume 83.8 fL (80-100); Monocytes Absolute Auto 600 /uL (0-900); Monocytes Percent Auto 8.1 % (3-14); Neutrophils Absolute Auto 5900 /uL (1500-7000); Neutrophils Percent Auto 76.3 % (50-75); Platelet Count 215 X10^3/uL (150-400); Red Blood Cell Count 3.89 X10^6/uL (4.5-5.9); Red Cell Distribution Width 16.1 % (11.6-14.8); White Blood Cell Count 7.7 X10^3/uL (4.5-11.0)
[2020-07-25 06:18] LABS: Alanine Aminotransferase 20 IU/L (<50); Albumin 3.2 g/dL (3.5-5.0); Albumin Globulin Ratio 0.9 (1.0-2.8); Alkaline Phosphatase 104 U/L (38-126); Aspartate Aminotransferase 26 IU/L (17-59); BUN Creatinine Ratio 14.3 (6-22); Bilirubin Total 0.6 mg/dL (0.2-1.3); Blood Urea Nitrogen 11 mg/dL (9-20); Calcium 8.5 mg/dL (8.4-10.2); Carbon Dioxide 31 mmol/L (22-32); Chloride 103 mmol/L (98-107); Estimated Glomerular Filt Rate > 60.0 mL/min (>60); Globulin 3.5 g/dL (1.7-4.1); Glucose 109 mg/dL (80-110); HEMOLYSIS < 15 (0-50); Magnesium 2.2 mg/dL (1.6-2.3); Potassium 3.8 mmol/L (3.4-5.1); Sodium 137 mmol/L (137-145); Total Protein 6.7 g/dL (6.3-8.2)
[2020-07-25 06:38] LABS: Procalcitonin < 0.05 ng/mL (<0.5)
[2020-07-25] MEDS: HYDROMORPHONE 0.5 MG INJ IV ×2 (07:50→14:54)
[2020-07-25] MEDS: ENOXAPARIN 40 MG/0.4 ML SYRINGE SUBCUT (07:53)
[2020-07-25] MEDS: GABAPENTIN 300 MG CAPSULE PO ×2 (08:05→21:21)
[2020-07-25] MEDS: OXYCODONE IR 5 MG TABLET PO ×3 (09:33→21:21)
[2020-07-25] MEDS: SODIUM CHLORIDE 0.9% FLUSH 10 ML IV ×4 (09:35→21:22)
--- NOTE | 2020-07-25 11:05 | DI.CT.S_ITS ---
PROCEDURE: CT ABDOMEN PELVIS W CON INDICATIONS: diverticulitis follow up TECHNIQUE: After the administration of oral and intravenous contrast, 5 mm thick sections acquired from the diaphragms to the symphysis. 5 mm thick coronal and sagittal reformats were performed. For radiation dose reduction, the following was used: automated exposure control, adjustment of mA and/or kV according to patient size. COMPARISON: Outside Facility, , CT ABDOMEN/PELVIS WITH CONTRAST, 07/19/2020, 13:46. FINDINGS: Image quality: Excellent. ABDOMEN: Lung bases: Lung bases are clear. Heart size is normal. Solid organs: Multiple hepatic hypodensities are likely hepatic cysts. Liver is normal in size and enhancement. Gallbladder contains gallstones. Biliary system is non-dilated. Pancreas enhances normally. Spleen is normal in size and enhancement. No adrenal nodules. Kidneys are normal in size and enhancement, without hydronephrosis. Peritoneum and bowel: There are innumerable colonic diverticula, most constricted in sigmoid colon. There is focal thickening of sigmoid colon and pericolonic stranding in pelvis consistent with acute diverticulitis. Again noted is a small diverticular abscess measuring 2.2 cm, minimally changed from the last exam. Stomach, small bowel, and colon loops are normal in caliber. No free fluid or air. Nodes and vessels: No retroperitoneal or mesenteric adenopathy. Aorta and inferior vena cava are normal in caliber. Miscellaneous: No ventral hernias. PELVIS: Genitourinary: Bladder wall is mildly thickened involving the bladder dome. Miscellaneous: No inguinal hernias or adenopathy. Bones: No suspicious bony lesions. No vertebral body compression fractures. Severe degenerative changes in lumbar spine. There is right hip arthroplasty. IMPRESSION: 1. Acute diverticulitis of the sigmoid colon. There is a small 2 cm diverticular abscess, minimally changed. 2. Mild bladder wall thickening involving the bladder dome, likely secondary to direct spread of inflammation/infection. 3. Cholelithiasis. 4. Multiple small hepatic hypodensities are most likely hepatic cysts. Dictated by: Mal Jimenez M.D. on 07/25/2020 at 12:21 Approved by: Mal Jimenez M.D. on 07/25/2020 at 12:31
--- NOTE | 2020-07-25 11:32 | P.PN_ITS ---
Subjective Subjective Date Patient Seen: 07/25/20 Time Patient Seen: 11:32 Interval history: Overall abdominal pain is improving but it is now primarily focused in the left lower quadrant. He is tolerant of a diet no nausea vomiting passing gas and having bowel movements. Exam Vital Signs (past 8 hours): - 07/25/20 04:25 07/25/20 06:03 07/25/20 09:25 Temperature 98.1 F Pulse Rate 62 63 Respiratory Rate 18 18 Blood Pressure 132/67 117/64 Pulse Oximetry 98 96 96 Oxygen Delivery Method Room Air Oxygen Flow Rate 0 Narrative Exam Narrative: General adult male alert oriented no acute distress Abdomen focally tender left lower quadrant mildly distended no peritonitis Objective Labs Result Diagrams: 07/25/20 05:13 07/25/20 05:13 Labs: Laboratory Results - last 24 hr 07/25/20 07/25/20 07/25/20 05:13 05:13 05:13 WBC 7.7 RBC 3.89 L Hgb 10.8 L Hct 32.6 L MCV 83.8 MCH 27.7 MCHC 33.1 RDW 16.1 H Plt Count 215 Neut % (Auto) 76.3 H Lymph % (Auto) 13.5 L [place] % (Auto) 8.1 Eos % (Auto) 1.8 L Baso % (Auto) 0.3 Neut # (Auto) 5900 Lymph # (Auto) 1000 L [place] # (Auto) 600 Eos # (Auto) 100 Baso # (Auto) 0 Sodium 137 Potassium 3.8 Chloride 103 Carbon Dioxide 31 BUN 11 Creatinine 0.77 Estimated GFR > 60.0 BUN/Creatinine Ratio 14.3 Glucose 109 Calcium 8.5 Magnesium 2.2 Total Bilirubin 0.6 AST 26 ALT 20 Alkaline Phosphatase 104 Total Protein 6.7 Albumin 3.2 L Globulin 3.5 Albumin/Globulin Ratio 0.9 L Procalcitonin < 0.05 Assessment & Plan Assessment & Plan narrative: 69-year-old male with complicated diverticulitis. At admission there was a small pericolonic abscess too small to drain. Would have expected his abdominal pain to be improved by this point of his hospitalization will reimage today. Labs and vitals unremarkable Plan CT abdomen pelvis today with possible percutaneous drainage. Quality VTE Deep Vein Thrombosis/Pulmonary Embolism Present on Admission: No
--- NOTE | 2020-07-25 11:34 | PC.NURSE ---
Day Shift- Pt A&OX4, able to make needs known using call light. Pt's at bedside in/out today. rates 4-5/10 aching and intermittent sharp pain to mid and LLQ abd. IV pRN Dilaudid given at 0750. PRN Oxycodone 5mg given at 0930 with good effect, pain reassessed for 2/10. Pt OOB indep with steady gait without issue, currently sitting on window bench. Pt drank 800mls of oral contrast for CT scan, aware to be NPO otherwise. No other voiced concerns, call light within reach,
--- NOTE | 2020-07-25 15:27 | CM.DPC ---
DCP: continued. Case received and EMR reviewed. Pt's sharp abdominal pain is continuing. He is NPO and going for CT with contrast this afternoon. DCP team will continue to follow to assist with d/c issues and options as POC unfolds.
[2020-07-25] MEDS: HYDROMORPHONE 1 MG INJ IV (15:50)
--- NOTE | 2020-07-25 17:50 | PM.PN.1 ---
Subjective Subjective Date Patient Seen: 07/25/20 Interval history: Walter Burden is a 69-year-old male with a past medical history significant for obstructive sleep apnea on CPAP, spinal stenosis and previous diverticulitis x2 episodes who presented to the ED with progressive worsening abdominal pain over 1 week. Patient is on day 6 of IV antibiotics without significant improvement. He complains of left lower abdominal pain actually worse in the past 24 hours. He felt he got worse after started on regular diet. A follow-up CT today showed unchanged findings of sigmoid diverticulitis an a small 2 cm left abscess. Exam Vital Signs (past 8 hours): - 07/25/20 13:34 07/25/20 13:35 07/25/20 15:24 Temperature 98.4 F 99.0 F Pulse Rate 58 L 60 Respiratory Rate 18 18 Blood Pressure 129/69 117/68 Pulse Oximetry 98 97 99 Oxygen Delivery Method Room Air Oxygen Flow Rate 0 Narrative Exam Narrative: General: Alert, pleasant and cooperative Abdomen: Mildly distended, tender left lower quadrant Extremities: No edema Objective Labs Result Diagrams: 07/25/20 05:13 07/25/20 05:13 Labs: Laboratory Results - last 24 hr 07/25/20 07/25/20 07/25/20 05:13 05:13 05:13 WBC 7.7 RBC 3.89 L Hgb 10.8 L Hct 32.6 L MCV 83.8 MCH 27.7 MCHC 33.1 RDW 16.1 H Plt Count 215 Neut % (Auto) 76.3 H Lymph % (Auto) 13.5 L [place] % (Auto) 8.1 Eos % (Auto) 1.8 L Baso % (Auto) 0.3 Neut # (Auto) 5900 Lymph # (Auto) 1000 L [place] # (Auto) 600 Eos # (Auto) 100 Baso # (Auto) 0 Sodium 137 Potassium 3.8 Chloride 103 Carbon Dioxide 31 BUN 11 Creatinine 0.77 Estimated GFR > 60.0 BUN/Creatinine Ratio 14.3 Glucose 109 Calcium 8.5 Magnesium 2.2 Total Bilirubin 0.6 AST 26 ALT 20 Alkaline Phosphatase 104 Total Protein 6.7 Albumin 3.2 L Globulin 3.5 Albumin/Globulin Ratio 0.9 L Procalcitonin < 0.05 Assessment & Plan Assessment & Plan narrative: Walter Burden is a 69-year-old male with a past medical history significant for obstructive sleep apnea on CPAP, spinal stenosis and previous diverticulitis x2 episodes who presented to the ED with progressive worsening abdominal pain over 1 week. 1. Acute sigmoid diverticulitis with diverticular abscess, present on admission. Active. -Patient with continued left lower pain. Follow-up CT 07/25 shows unchanged sigmoid diverticulitis with 2 cm abscess -Outside CT abdomen and pelvis with contrast demonstrated severe sigmoid diverticulitis with 2 cm abscess. -Continue Zosyn 3.375 g IV every 6 hours and surgery added metronidazole 500 mg every 8 hours to treat diverticulitis. -Continue pain control with: Started oxycodone 5 mg every 4 hours as needed for moderate pain now that patient is eating and hydromorphone 0.5-1 mg IV every 4 hours as needed for severe break through pain. -Continue Zofran 4 mg IV every 4 hours as needed for nausea. -Continue clear liquid diet -appreciate surgery recommendations and follow-up of patient 2. Acute hematuria, present on admission. Resolved. -Outside urinalysis with greater than 100 RBC, 1-2 WBC, no bacteria. -Etiology unclear and it would be unusual presentation for colovesical fistula. -Patient has history of nephrolithiasis and may have passed a small stone or may have bladder inflammation associated with his diverticulitis. Patient did endorse passing a small blood clot in urine at home. 3. Spinal stenosis, chronic, present on admission. Stable. -Continue home gabapentin 300 mg twice daily. 4. Obstructive sleep apnea on CPAP, chronic, present on admission. Stable. -Continue home CPAP per RT protocol. Code status: Full code, surrogate decision maker designated as spouse VTE prophylaxis: Lovenox, SCDs Quality VTE Deep Vein Thrombosis/Pulmonary Embolism Present on Admission: No
[2020-07-26] VITALS (11 sets, daily range): BP systolic 115–157; BP diastolic 59–74; PULSE 52–64; RESP 15–18; TEMP 36.3–37.1; O2SAT 94–100
[2020-07-26] MEDS: PIPERACILLIN-TAZO 3.375 GM/50 ML FROZ.PIGGY IV ×2 (02:40→09:21)
[2020-07-26] MEDS: metroNIDAZOLE 500 MG/100 ML PIGGYBACK 100 MG IV ×3 (05:31→20:28)
[2020-07-26] MEDS: GABAPENTIN 300 MG CAPSULE PO ×2 (09:22→21:09)
[2020-07-26] MEDS: SODIUM CHLORIDE 0.9% FLUSH 10 ML IV ×3 (09:22→21:09)
[2020-07-26] MEDS: ENOXAPARIN 40 MG/0.4 ML SYRINGE SUBCUT (09:22)
--- NOTE | 2020-07-26 09:55 | PM.PN.1 ---
Subjective Subjective Date Patient Seen: 07/26/20 Time Patient Seen: 09:55 Interval history: Backed off to clear liquids yesterday afternoon feels significantly better than 24 hours ago. Left lower quadrant tenderness is almost entirely resolved today. No nausea vomiting is having bowel movements and passed gas Exam Vital Signs (past 8 hours): - 07/26/20 06:00 07/26/20 06:42 07/26/20 08:51 Temperature 97.5 F L 97.4 F L Pulse Rate 62 58 L Respiratory Rate 16 15 Blood Pressure 138/68 128/65 Pulse Oximetry 100 100 94 Oxygen Delivery Method Room Air Oxygen Flow Rate 0 Narrative Exam Narrative: General adult male alert oriented no acute distress Abdomen soft minimally tender left lower quadrant significantly improved over the past 24 hours Objective Labs Result Diagrams: 07/25/20 05:13 07/25/20 05:13 Assessment & Plan Assessment & Plan narrative: 69-year-old male with complicated diverticulitis. He has made the hospital for non operative management. Repeat of his CT yesterday demonstrates no interval change in his diverticulitis there was a 2 cm pericolonic abscess unchanged from admission. Afebrile no leukocytosis. Plan -clear liquid diet may try advancing to soft diet later today if tolerates -continue antibiotics as written Quality VTE Deep Vein Thrombosis/Pulmonary Embolism Present on Admission: No
--- NOTE | 2020-07-26 12:18 | PM.PN.1 ---
Subjective Subjective Date Patient Seen: 07/26/20 Interval history: Patient is a 69-year-old male admitted to the hospital for acute diverticulitis. Despite IV antibiotics he has continued to have intermittent pain. Today he went several hours without any pain medication. He is tolerating clear liquid diet without incident. His diet will be advanced to a soft diet today. In an effort to improve his pain control will switch his antibiotics from his current regimen to 2nd antibiotic choice. Overall the patient appears to be improving. No fever. No diarrhea. He is having small but minimal bowel movements. Patient developed interruption along the upper portion of his back. It is not erythematous or itching. He has no other rash. Exam Vital Signs (past 8 hours): - 07/26/20 06:00 07/26/20 06:42 07/26/20 08:51 Temperature 97.5 F L 97.4 F L Pulse Rate 62 58 L Respiratory Rate 16 15 Blood Pressure 138/68 128/65 Pulse Oximetry 100 100 94 Oxygen Delivery Method Room Air Oxygen Flow Rate 0 Narrative Exam Narrative: Pleasant gentleman resting comfortably in no obvious distress Id neck upper back. Patient has a follicular eruption along the upper back. It is nontender, not warm, not read. There are no other eruptions on the scan Lungs: Clear to auscultation Cardiac exam: Regular rate and rhythm normal S1-S2 Abdomen: Soft, mild tenderness in the left lower quadrant no palpable masses, no rebound tenderness, no board-like rigidity Extremities: Trace edema Objective Labs Result Diagrams: 07/25/20 05:13 07/25/20 05:13 Assessment & Plan Assessment & Plan narrative: Acute sigmoid diverticulitis with diverticular abscess, present on admission. Active. -Patient with continued left lower pain. Follow-up CT 07/25 shows unchanged sigmoid diverticulitis with 2 cm abscess -Outside CT abdomen and pelvis with contrast demonstrated severe sigmoid diverticulitis with 2 cm abscess. -will discontinue Zosyn, start oral Levaquin -Continue pain control with: Started oxycodone 5 mg every 4 hours as needed for moderate pain now that patient is eating and hydromorphone 0.5-1 mg IV every 4 hours as needed for severe break through pain. -Continue Zofran 4 mg IV every 4 hours as needed for nausea. -Continue clear liquid diet, advanced diet to soft mechanical diet -appreciate surgery recommendations and follow-up of patient 2. Acute hematuria, present on admission. Resolved. -Outside urinalysis with greater than 100 RBC, 1-2 WBC, no bacteria. --Patient has history of nephrolithiasis and may have passed a small stone or may have bladder inflammation associated with his diverticulitis. Patient did endorse passing a small blood clot in urine at home. -outpatient urological follow-up for evaluation of hematuria 3. Spinal stenosis, chronic, present on admission. Stable. -Continue home gabapentin 300 mg twice daily. 4. Obstructive sleep apnea on CPAP, chronic, present on admission. Stable. -Continue home CPAP per RT protocol. Quality VTE Deep Vein Thrombosis/Pulmonary Embolism Present on Admission: No
[2020-07-26] MEDS: levoFLOXacin 500 MG/100 ML PIGGYBACK 100 MG IV (12:46)
--- NOTE | 2020-07-26 20:40 | PC.NURSE ---
Pt VSS, A and O x 4, + flatus, 3 small to medium BMs. Pt ate 100% of his evening meal and is drinking fluids. Pt denies pain. Pt needs to DC tomorrow by 1130 1200 in order to make his ferry and get his medications. Advised staff.
[2020-07-27] MEDS: metroNIDAZOLE 500 MG/100 ML PIGGYBACK 100 MG IV (05:44)
[2020-07-27] MEDS: SODIUM CHLORIDE 0.9% 250 ML 21 ML IV (05:45)
[2020-07-27 06:08] VITALS: BP 156/79; PULSE 66; RESP 16; TEMP 36.4; O2SAT 98
--- NOTE | 2020-07-27 08:31 | PM.DS.1 ---
History of Present Illness History of Present Illness Date Patient Seen: 07/27/20 Chief complaint: diverticulitis Narrative: Patient is a 69-year-old male with spinal stenosis but otherwise generally good health who presented initially to [facility] with complaints of worsening abdominal pain. One week ago he developed pain in the left lower abdomen. Since then the pain has also crossed over to the right lower and right upper abdomen. Patient denies nausea or vomiting. He had chills last night and low-grade temp in the ED. he had episode of gross hematuria this morning. He denies frothy urine. His urinalysis from outside ED indicated greater than 100 RBC and 1-2 WBC. Blood work showed WBC 8.0 with 76% neutrophils, hemoglobin 11.1, hematocrit 33.9, platelets 215, lactate 1.4, sodium 136, potassium 3.9, BUN 14, creatinine 0.81, with normal LFTs. Outside CT scan of abdomen and pelvis indicated severe diverticulitis of the sigmoid colon with a 2 cm left perinephric abscess. Patient received dose of Zosyn at about 3:00 p.m. and subsequently transferred to [facility] for inpatient care and surgical consultation. Patient does note 1 prior history of uncomplicated diverticulitis back in 2010. Discharge Providers Provider Date of admission: 07/19/20 17:34 Discharge Date: 07/27/20 Primary care physician: Yaw Javier MD Consults: 07/19/20 18:05 Consult to Physician Routine Comment: Consulting Provider: Justin Norwood Reason for consultation: diverticultis Has provider been notified: Yes Discharge provider: Jeanne Rocha MD Summary Hospital Course Discharge Diagnosis: 1. Acute diverticulitis, present on admission, improved 2. Hematuria, present on admission, now resolved 3. Sleep apnea on CPAP 4. Spinal stenosis 5. Probable hypertension Hospital Course: Patient was admitted to the hospital for treatment of acute diverticulitis. CT of the abdomen and pelvis revealed severe diverticulosis with a small a diverticular abscess. The patient initially had hematuria. Urine cultures were negative. The hematuria subsequently resolved. The patient had his diet slowly advanced. He continued to have significant pain. Flagyl was added to his IV Zosyn regimen. His diet was slowly but surely advance. He again had recurrent pain. Repeat CT scan of the abdomen and pelvis was unchanged from previous. Patient's antibiotic was changed to Levaquin and Flagyl. He was able to advance his diet and tolerated without difficulty. He had up positive bowel movement. Patient had improved abdominal pain. He was deemed appropriate for discharge and arrangements were made for him to discharge home. He will complete a 14 day course of antibiotics. Patient should follow-up with Dr. Montoya in 2 weeks. Status at Discharge Cognitive/behavioral status at discharge: oriented Functional status at discharge: independent ambulation Overall status at discharge: patient is back to baseline Time Spent with Patient Time spent: Less than 30 minutes Exam Vital Signs (past 8 hours): - 07/27/20 06:08 Temperature 97.5 F L Pulse Rate 66 Respiratory Rate 16 Blood Pressure 156/79 H Pulse Oximetry 98 Oxygen Delivery Method Room Air Oxygen Flow Rate 0 Narrative Exam Narrative: Pleasant gentleman in no acute distress Lungs: Clear to auscultation Cardiac exam: Regular rate and rhythm normal S1-S2 Abdomen: Soft, mildly distended, nontender, no palpable masses Extremities: No edema Objective Labs Result Diagrams: 07/25/20 05:13 07/25/20 05:13 Discharge Assessment & Plan Assessment and Plan Assessment: 1. Acute diverticulitis, improved 2. Spinal stenosis 3. Hematuria resolved 4. Elevated blood pressure, question hypertension 5. Obstructive sleep apnea Plan of Treatment: Patient will continue a 7 day course of antibiotics. He will follow-up with Dr. Montoya in 2 weeks Patient will follow-up with primary care physician regarding initiation of treatment for hypertension. Discharge Plan Discharge Plan Patient Disposition: Home Discharge orders & Medications Prescriptions: New levofloxacin 500 mg tablet 500 mg PO DAILY Qty: 7 RF: 0 metronidazole [Flagyl] 500 mg tablet 500 mg PO Q8H Qty: 21 RF: 0 Continued aspirin 81 mg Tablet,Delayed Release (Dr/Ec) 81 mg PO DAILY RF: 0 gabapentin 300 mg Capsule 300 mg PO BID RF: 0 Follow up/Referrals: Yaw Javier MD [Primary Care Provider] - Justin Norwood MD [Physician] - (f/u diverticulitis) Discharge Health Status Multidrug resistant organism: No MDRO Diet/Activity/Treatments Diet: Diet as Tolerated Skin/Wound/Dressing Care Report to your healthcare provider any signs of infection, such as:: chills, fever and increased pain Visit Report/Discharge Packet Instructions: DI for Diverticulitis, How to Use Antibiotics Wisely Visit Report Forms: Stroke Signs & Symptoms Discharge Data Primary Care Provider: Yaw Javier VTE Deep Vein Thrombosis/Pulmonary Embolism Present on Admission: No
[2020-07-27] MEDS: GABAPENTIN 300 MG CAPSULE PO (09:26)
[2020-07-27 09:29] VITALS: BP 138/68; PULSE 50; RESP 16; TEMP 36.9; O2SAT 97
--- NOTE | 2020-07-27 11:48 | PC.NURSE ---
IV was dc'd intact this morning. Patient up independently in room, without complaint, tolerating diet. Discharge instructions reviewed with patient and his , they have no further questions at this time. 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 Patient discharged to home with his with all belongings.
== END 2020-07-27 11:30 | disposition home or self-care (01) | DRG 392 ==
PROVIDERS: Internal Medicine; Admitting Provider Internal Medicine; PCP Family Medicine Geriatric Medicine; Referring Provider Internal Medicine; Visit Provider Internal Medicine
DX: K57.20 Diverticulitis of large intestine with perforation and abscess without bleeding (principal); E66.9 Obesity, unspecified; Z68.33 Body mass index [BMI] 33.0-33.9, adult; R31.0 Gross hematuria; G47.33 Obstructive sleep apnea (adult) (pediatric); Z87.891 Personal history of nicotine dependence; Z87.442 Personal history of urinary calculi; M48.00 Spinal stenosis, site unspecified; I10 Essential (primary) hypertension
CPT/HCPCS: 36415; 36592; 74022; 74177; 80048; 80053; 80076; 82962; 83735; 84145; 85025; 99231; 99232; J1170; J1650; J1885; J1956; J2543

== ENCOUNTER → 2020-12-16 12:20 | Outpatient (CLI) | payer OTHER, SELFPAY ==
--- NOTE | 2020-12-16 12:22 | DI.NM.S_ITS ---
PROCEDURE: NM BONE 3 PHASE RADIOPHARMACEUTICAL: 20.7 mCi Tc-99m MDP IV. INDICATIONS: Right knee pain, Hx of TKA TECHNIQUE: Multiple bone scintigrams were obtained after intravenous injection of Tc-99m MDP, including flow, blood pool, and delayed images centered to the region of interest. COMPARISON: [facility] [place], CR, XR KNEE 4+ VIEWS RIGHT, 12/05/2020, 11:31. FINDINGS: A triple phase bone scan was obtained, including flow, blood pool and delayed the images centered to the knees. The flow and blood pool images demonstrate symmetrical vascular activity to both lower extremities. Delayed images demonstrate photopenia around knees consistent with bilateral knee arthroplasties. Low-level increased activity around knee prostheses is consistent with postsurgical change. No definitive scintigraphic findings to suggest prosthesis loosening or infection. IMPRESSION: The scintigraphic findings are most compatible with expected postsurgical changes related to bilateral total knee arthroplasty. No scintigraphic findings to suggest prosthesis loosening or infection. Dictated by: Mal Jimenez M.D. on 12/16/2020 at 17:01 Approved by: Mal Jimenez M.D. on 12/16/2020 at 17:06
== END ==
PROVIDERS: PCP Family Medicine Geriatric Medicine; Referring Provider Orthopaedic Surgery Adult Reconstructive Orthopaedic Surgery; Visit Provider Orthopaedic Surgery Adult Reconstructive Orthopaedic Surgery
DX: M25.561 Pain in right knee (principal); T84.84XA Pain due to internal orthopedic prosthetic devices, implants and grafts, initial encounter
CPT/HCPCS: 78315; A9503

== ENCOUNTER → 2021-10-13 11:03 | Outpatient (CLI) | payer OTHER, SELFPAY ==
--- NOTE | 2021-10-13 | DI.MRI.S_ITS ---
PROCEDURE: MR FEMUR RT WO CON INDICATIONS: RIGHT THIGH PAIN TECHNIQUE: Noncontrast coronal and sagittal T1 spin echo and STIR; axial T1 spin echo and T2 fast spin echo with fat saturation through the right thigh. COMPARISON: [place], [place], NM BONE 3 PHASE, 12/16/2020, 12:48. [facility] [place], CR, XR FEMUR 2+ VIEWS RIGHT, 10/01/2021, 12:35. FINDINGS: Image quality: Excellent. Bones: Patient is status post right hip and right knee arthroplasty with susceptibility artifacts limits the evaluation of proximal and most distal femur. There is suggestion of slight increased marrow signal surrounding the femoral component of right hip prosthesis. No other area of abnormal marrow signal is seen. Right femoral cortex is intact. No fracture or dislocation. No suspicious intraosseous lesion. Soft tissues: There is no significant right hip joint effusion. The scanned muscles demonstrate normal overall bulk and internal signal. Subcutaneous tissues appear normal as well. No soft tissue masses are present. IMPRESSION: 1. Prior right total hip arthroplasty with mild T2 hyperintense signal surrounding femoral component of right hip prosthesis concerning for early hardware loosening. No fracture or dislocation. No other area of abnormal marrow signal. Prior right total knee arthroplasty. 2. No gross right thigh muscle or tendon signal abnormality. No significant right hip joint effusion. Dictated by: Bry Grigsby M.D. on 10/13/2021 at 12:55 Approved by: Bry Grigsby M.D. on 10/13/2021 at 13:08
== END ==
PROVIDERS: PCP Family Medicine Geriatric Medicine; Referring Provider Orthopaedic Surgery; Visit Provider Orthopaedic Surgery
DX: M79.651 Pain in right thigh (principal); Z96.641 Presence of right artificial hip joint; Z96.651 Presence of right artificial knee joint
CPT/HCPCS: 73718

== ENCOUNTER 2022-08-23 09:41 | Emergency (ER) | payer OTHER, SELFPAY ==
[2022-08-23] VITALS (19 sets, daily range): BP systolic 128–180; BP diastolic 68–108; PULSE 63–99; RESP 16–26; O2SAT 96–100; BMI 37.4
--- NOTE | 2022-08-23 10:05 | DI.RAD.S_ITS ---
PROCEDURE: XR CHEST 1V INDICATIONS: SOB TECHNIQUE: One view of the chest was acquired. COMPARISON: None. FINDINGS: Surgical changes and devices: None. Lungs and pleura: Lungs are clear. No pleural effusions or pneumothorax. Mediastinum: Mediastinal contours appear normal. Mild cardiomegaly. Bones and chest wall: No suspicious bony lesions. Overlying soft tissues appear unremarkable. IMPRESSION: 1. Cardiomegaly. 2. No evidence acute pulmonary process. Dictated by: Robby Anderson M.D. on 08/23/2022 at 11:30 Approved by: Robby Andesron M.D. on 08/23/2022 at 11:33
--- NOTE | 2022-08-23 10:14 | ED_ITS ---
HPI - General Adult General Chief complaint: Shortness of Breath/Dyspnea Stated complaint: heart racing/SOB x5 days Time Seen by Provider: 08/23/22 10:03 Source: patient Mode of arrival: Ambulatory History of Present Illness HPI narrative: patient is a 72-year-old male. For the past 5 days has had issues with his heart racing whenever he stands up and moves around. He does get a little short of breath with this. No chest pain. He does feel like his heart is beating fast. Has never had anything like this in the past. No chest pain. Does have lower extremity swelling but this is not necessarily new for him. Has not tried anything for symptoms prior to arrival. Has had a head bleed in the past. This was several years ago. Had happened after he had an epidural spinal injection. Is not currently on blood thinners. Related Data Home Medications Medication Instructions Recorded Confirmed aspirin 81 mg tablet,delayed 81 mg PO DAILY 05/21/20 07/19/20 release gabapentin 300 mg capsule 300 mg PO BID 05/21/20 07/19/20 Previous Rx's Medication Instructions Recorded levofloxacin 500 mg tablet 500 mg PO DAILY #7 tabs 07/27/20 metronidazole 500 mg tablet 500 mg PO Q8H #21 tabs 07/27/20 (Flagyl) apixaban 5 mg tablet (Eliquis) 5 mg PO BID #14 tabs 08/23/22 metoprolol tartrate 25 mg tablet 25 mg PO BID #28 tabs 08/23/22 Allergies Allergy/AdvReac Type Severity Reaction Status Date / Time adhesive tape Allergy Mild Redness Verified 08/23/22 09:58 to skin if on longer than 3 days Review of Systems Constitutional Constitutional: Reports system reviewed and no additional complaints, except as documented Cardiovascular Cardiovascular: Reports system reviewed and no additional complaints, except as documented Respiratory Respiratory: Reports system reviewed and no additional complaints, except as documented Gastrointestinal Gastrointestinal: Reports system reviewed and no additional complaints, except as documented Integumentary/Breasts Skin/Breast: Reports system reviewed and no additional complaints, except as documented Neurologic Neurologic: Reports system reviewed and no additional complaints, except as d ocumented Hematologic/Lymphatic On Anticoagulants: No Patient History Medical History (Updated 08/23/22 @ 13:32 by Wan Dewey DO) Brain bleed (2015) Chronic back pain Diverticulosis Multiple lipomas (~1975) BENY on CPAP Osteoarthritis Plantar fasciitis of right foot Surgical History History of arthroplasty of left knee History of arthroplasty of right knee History of testicular surgery History of vasectomy Hx of left inguinal hernia repair Hx of right inguinal hernia repair Hx of umbilical hernia repair Social History household members: spouse Smoking Status: Former smoker alcohol intake: current Smoking Status: Former smoker alcohol intake frequency: a few times a week Substance Use Type: does not use Exam Initial Vital Signs Initial Vital Signs: Vital Signs Pulse Rate 63 08/23/22 09:50 Pulse Oximetry 100 08/23/22 09:50 HENMT Head: normal to inspection and normocephalic Chest Chest: normal inspection of the chest Resp Effort & Inspection: normal respiratory effort Auscultation: clear to auscultation bilaterally Cardio Rate: regular rate Rhythm: abnormal rhythm GI Inspection: normal to inspection Skin General: no rashes or lesions noted Neuro General: patient alert, patient awake, patient oriented x3 and moves all extremities Extrem General: edema ( 1+ equal bilateral) Course Orders Ordered: Discontinued Medications Apixaban (Apixaban 5 Mg Tablet) 5 mg PO NOW ONE Stop: 08/23/22 13:29 Last Admin: 08/23/22 13:54 Dose: 5 mg Documented By: ADOLFO Metoprolol Tartrate (Metoprolol Ir 25 Mg Tablet) 25 mg PO NOW ONE Stop: 08/23/22 13:28 Last Admin: 08/23/22 13:54 Dose: 25 mg Documented By: ADOLFO Vital Signs Vital signs: Vital Signs - 8 hr 08/23/22 09:58 08/23/22 09:50 08/23/22 09:52 Pulse Rate 92 H 63 99 H Respiratory Rate 16 20 Blood Pressure 140/108 H Pulse Oximetry 99 100 97 Oxygen Delivery Method Room Air 08/23/22 09:52 08/23/22 10:00 08/23/22 10:00 Pulse Rate 85 Respiratory Rate 18 Blood Pressure 140/108 H 167/81 H Pulse Oximetry 98 Oxygen Delivery Method Room Air 08/23/22 10:15 08/23/22 10:15 08/23/22 10:30 Pulse Rate 84 83 Respiratory Rate 16 22 Blood Pressure 140/70 Pulse Oximetry 98 96 Oxygen Delivery Method 08/23/22 10:31 08/23/22 10:31 08/23/22 10:46 Pulse Rate 85 84 Respiratory Rate 20 20 Blood Pressure 168/88 H Pulse Oximetry 97 98 Oxygen Delivery Method Room Air 08/23/22 10:46 08/23/22 10:48 08/23/22 10:48 Pulse Rate 83 Respiratory Rate 22 Blood Pressure 159/71 H 157/70 H Pulse Oximetry 98 Oxygen Delivery Method 08/23/22 11:00 08/23/22 11:01 08/23/22 11:01 Pulse Rate 83 80 Respiratory Rate 21 24 Blood Pressure 172/82 H Pulse Oximetry 98 97 Oxygen Delivery Method Room Air Medical Decision Making Lab Data Lab results reviewed: Yes I reviewed the patient's lab results. Result diagrams: 08/23/22 09:55 08/23/22 09:55 Labs: Lab Results 08/23/22 08/23/22 08/23/22 Range/Units 09:55 09:55 09:55 WBC 6.2 (4.5-11.0) X10^3/uL RBC 4.67 (4.5-5.9) X10^6/uL Hgb 13.7 (13.5-17.5) g/dL Hct 40.3 L (41-53) % MCV 86.2 (80-100) fL MCH 29.4 (26-34) PG MCHC 34.1 (30-36) % RDW 14.2 (11.6-14.8) % Plt Count 157 (150-400) X10^3/uL Neut % (Auto) 70.7 (50-75) % Lymph % (Auto) 18.9 L (25-40) % [place] % (Auto) 7.5 (3-14) % Eos % (Auto) 2.2 (2-4) % Baso % (Auto) 0.7 (0-2) % Neut # (Auto) 4400 (1215-9173) /uL Lymph # (Auto) 1200 (1705-3847) /uL [place] # (Auto) 500 (0-900) /uL Eos # (Auto) 100 (0-450) /uL Baso # (Auto) 0 (0-100) /uL PT 12.6 (10.1-12.7) SECONDS INR 1.1 (0.9-1.3) APTT 32 (26-36) SECONDS Sodium 138 (137-145) mmol/L Potassium 4.4 (3.4-5.1) mmol/L Chloride 109 H (98-107) mmol/L Carbon Dioxide 21 L (22-32) mmol/L BUN 19 (9-20) mg/dL Creatinine 0.76 (0.66-1.25) mg/dL Estimated GFR > 60 (>60) mL/min BUN/Creatinine Ratio 25.0 H (6-22) Glucose 84 (80-110) mg/dL Calcium 8.6 (8.4-10.2) mg/dL Magnesium 2.1 (1.6-2.3) mg/dL Total Bilirubin 0.5 (0.2-1.3) mg/dL AST 34 (17-59) IU/L ALT 33 (<50) IU/L Alkaline Phosphatase 83 (38-126) U/L Total Creatine Kinase 78 (55-170) U/L CK-MB (CK-2) TNP CK-MB (CK-2) Rel Index TNP Troponin I 0.021 (0.01-0.034) ng/mL NT-Pro-B Natriuret Pep 1500 H (<125) pg/mL Total Protein 7.1 (6.3-8.2) g/dL Albumin 4.0 (3.5-5.0) g/dL Globulin 3.1 (1.7-4.1) g/dL Albumin/Globulin Ratio 1.3 (1.0-2.8) Lipase 124 (23-300) U/L Procalcitonin 0.04 (<0.5) ng/mL SARS-CoV-2 (PCR) (Negative) Influenza A (RT-PCR) (NEGATIVE) Influenza B (RT-PCR) (NEGATIVE) RSV (PCR) (Negative) 08/23/22 Range/Units 09:55 WBC (4.5-11.0) X10^3/uL RBC (4.5-5.9) X10^6/uL Hgb (13.5-17.5) g/dL Hct (41-53) % MCV (80-100) fL MCH (26-34) PG MCHC (30-36) % RDW (11.6-14.8) % Plt Count (150-400) X10^3/uL Neut % (Auto) (50-75) % Lymph % (Auto) (25-40) % [place] % (Auto) (3-14) % Eos % (Auto) (2-4) % Baso % (Auto) (0-2) % Neut # (Auto) (2188-1377) /uL Lymph # (Auto) (8812-1210) /uL [place] # (Auto) (0-900) /uL Eos # (Auto) (0-450) /uL Baso # (Auto) (0-100) /uL PT (10.1-12.7) SECONDS INR (0.9-1.3) APTT (26-36) SECONDS Sodium (137-145) mmol/L Potassium (3.4-5.1) mmol/L Chloride (98-107) mmol/L Carbon Dioxide (22-32) mmol/L BUN (9-20) mg/dL Creatinine (0.66-1.25) mg/dL Estimated GFR (>60) mL/min BUN/Creatinine Ratio (6-22) Glucose (80-110) mg/dL Calcium (8.4-10.2) mg/dL Magnesium (1.6-2.3) mg/dL Total Bilirubin (0.2-1.3) mg/dL AST (17-59) IU/L ALT (<50) IU/L Alkaline Phosphatase (38-126) U/L Total Creatine Kinase (55-170) U/L CK-MB (CK-2) CK-MB (CK-2) Rel Index Troponin I (0.01-0.034) ng/mL NT-Pro-B Natriuret Pep (<125) pg/mL Total Protein (6.3-8.2) g/dL Albumin (3.5-5.0) g/dL Globulin (1.7-4.1) g/dL Albumin/Globulin Ratio (1.0-2.8) Lipase (23-300) U/L Procalcitonin (<0.5) ng/mL SARS-CoV-2 (PCR) Negative (Negative) Influenza A (RT-PCR) Flu a negative (NEGATIVE) Influenza B (RT-PCR) Flu b negative (NEGATIVE) RSV (PCR) Negative (Negative) Imaging Data Chest x-ray: Radiologist's Impression: [address] [address] XRay Report Signed Patient: Walter Burden MR#: [id number] : 1950 Acct:[id number] Age/Sex: 72 / M Date of Service: 08/23/22 Loc: ED Accession Number: [id number] ?? Procedure: XR chest 1V Ordering Provider: Wan Dewey D.O. PROCEDURE:? XR CHEST 1V ? INDICATIONS:? SOB ? TECHNIQUE:? One view of the chest was acquired.? ? COMPARISON:? None. ? FINDINGS:? ? Surgical changes and devices:? None.? ? Lungs and pleura:? Lungs are clear.? No pleural effusions or pneumothorax.? ? Mediastinum:? Mediastinal contours appear normal.? Mild cardiomegaly. ? Bones and chest wall:? No suspicious bony lesions.? Overlying soft tissues appear unremarkable.? ? IMPRESSION:? ? 1. Cardiomegaly. ? 2. No evidence acute pulmonary process. ? ? ? Dictated by: Robby Anderson M.D. on 08/23/2022 at 11:30 ? ? Approved by: Robby Anderson M.D. on 08/23/2022 at 11:33? ECG Data Attestation: I personally reviewed and interpreted this ECG as follows: Interpretation: atrial fibrillation Ventricular rate 82 QRS 1 for [address] T changes MDM Narrative Medical decision making narrative: Patient is in atrial fibrillation/a flutter but is rate controlled when he is lying in bed. His chest x-ray is unremarkable. He is not on any rate- controlling medications. Not on anticoagulation. When he does get up and walk around his heart rate does elevate and he become short of breath. Plan abuse start him on metoprolol to help with rate control. We will also start him on anticoagulation. He has had a head bleed in the past but this was many years ago and it was after procedure. We discussed the risks and benefits starting on anticoagulation and after this discussion the decision was made to start this medicine. Will have him contact his primary doctor for follow-up. He was given return precautions. He expressed understanding and agreement. Discharge Plan Departure Patient Disposition: Home Clinical Impression: Atrial fibrillation Instructions: Atrial Fibrillation Activity Restrictions/Additional Instructions: I recommend that you keep your appointment that you have scheduled with your primary doctor on . Continue all of your medications as directed. Return to the emergency department for any new or worsening symptoms. Medications were sent to [facility]. This is 2 weeks' worth of medications. You will need them refilled by your primary provider. Prescriptions: New metoprolol tartrate 25 mg tablet 25 mg PO BID Qty: 28 0RF Eliquis 5 mg tablet 5 mg PO BID Qty: 14 0RF No Action aspirin 81 mg Tablet,Delayed Release (Dr/Ec) 81 mg PO DAILY gabapentin 300 mg Capsule 300 mg PO BID levofloxacin 500 mg tablet 500 mg PO DAILY Qty: 7 0RF metronidazole [Flagyl] 500 mg tablet 500 mg PO Q8H Qty: 21 0RF Referrals: Avinash Harrell MD [Primary Care Provider] - Visit Report Forms: Patient Portal/API
[2022-08-23 11:12] LABS: Add Manual Diff / Slide Review NO; Basophils Absolute Auto 0 /uL (0-100); Basophils Percent Auto 0.7 % (0-2); Eosinophils Absolute Auto 100 /uL (0-450); Eosinophils Percent Auto 2.2 % (2-4); Hematocrit 40.3 % (41-53); Hemoglobin 13.7 g/dL (13.5-17.5); Lymphocytes Absolute Auto 1200 /uL (1100-4500); Lymphocytes Percent Auto 18.9 % (25-40); Mean Corpuscular HGB Conc 34.1 % (30-36); Mean Corpuscular Hemoglobin 29.4 PG (26-34); Mean Corpuscular Volume 86.2 fL (80-100); Monocytes Absolute Auto 500 /uL (0-900); Monocytes Percent Auto 7.5 % (3-14); Neutrophils Absolute Auto 4400 /uL (1500-7000); Neutrophils Percent Auto 70.7 % (50-75); Platelet Count 157 X10^3/uL (150-400); Red Blood Cell Count 4.67 X10^6/uL (4.5-5.9); Red Cell Distribution Width 14.2 % (11.6-14.8); White Blood Cell Count 6.2 X10^3/uL (4.5-11.0)
[2022-08-23 11:19] LABS: INR 1.1 (0.9-1.3); Prothrombin Time 12.6 SECONDS (10.1-12.7)
[2022-08-23 11:22] LABS: PTT Partial Thromboplastin Tim 32 SECONDS (26-36)
[2022-08-23 11:53] LABS: Alanine Aminotransferase 33 IU/L (<50); Albumin Globulin Ratio 1.3 (1.0-2.8); Alkaline Phosphatase 83 U/L (38-126); Aspartate Aminotransferase 34 IU/L (17-59); Bilirubin Total 0.5 mg/dL (0.2-1.3); Blood Urea Nitrogen 19 mg/dL (9-20); Calcium 8.6 mg/dL (8.4-10.2); Carbon Dioxide 21 mmol/L (22-32); Chloride 109 mmol/L (98-107); Creatine Kinase 78 U/L (55-170); Estimated Glomerular Filt Rate > 60 mL/min (>60); Globulin 3.1 g/dL (1.7-4.1); Glucose 84 mg/dL (80-110); HEMOLYSIS < 15 (0-50); Lipase 124 U/L (23-300); Magnesium 2.1 mg/dL (1.6-2.3); Potassium 4.4 mmol/L (3.4-5.1); Sodium 138 mmol/L (137-145); Total Protein 7.1 g/dL (6.3-8.2)
[2022-08-23 12:03] LABS: NT-proBNP (BNP-Adult 18+) 1500 pg/mL (<125); Troponin I 0.021 ng/mL (0.01-0.034)
[2022-08-23 12:07] LABS: Procalcitonin 0.04 ng/mL (<0.5)
[2022-08-23 12:22] LABS: COVID-19 CEPHEID 4-PLEX PCR Negative (Negative); Influenza A - CEPHEID Flu A NEGATIVE (NEGATIVE); Influenza B - CEPHEID Flu B NEGATIVE (NEGATIVE); Respiratory Syncytial Virus Negative (Negative)
[2022-08-23] MEDS: APIXABAN 5 MG TABLET PO (13:54)
[2022-08-23] MEDS: METOPROLOL IR 25 MG TABLET PO (13:54)
== END 2022-08-23 14:14 | disposition home or self-care (01) ==
PROVIDERS: Emergency Provider Emergency Medicine; PCP Internal Medicine
DX: I48.91 Unspecified atrial fibrillation (principal); Z79.01 Long term (current) use of anticoagulants; Z79.899 Other long term (current) drug therapy; Z20.822 Contact with and (suspected) exposure to COVID-19
CPT/HCPCS: 0241U; 36415; 71045; 80053; 82550; 83690; 83735; 83880; 84145; 84484; 85025; 85610; 85730; 93005; 93010; 99284